=== PATIENT | female | born 1960 | race Caucasian/White ===

== ENCOUNTER 2019-08-17 13:47 | Outpatient (CLI) | payer MEDICARE, OTHER, SELFPAY ==
--- NOTE | ~2019-08-17 | MM_ITS ---
EXAMINATION: MM screening [facility] BI w chang HISTORY: Screening mammogram TECHNIQUE: Craniocaudal and mediolateral oblique 3-D tomosynthesis images were obtained and synthetic 2-D images were generated. CAD analysis was submitted and interpreted. COMPARISON: 06/27/2015, 06/20/2014, 06/06/2013 BREAST PARENCHYMAL COMPOSITION: There are scattered areas of fibroglandular density. FINDINGS: There has been interval insertion of a cardiac loop recorder is of the left breast. There i s no evidence of suspicious mass, calcification, or architectural distortion to suggest malignancy in either breast. There has been no suspicious interval change. IMPRESSION: 1. No mammographic evidence of malignancy. 2. Recommend routine screening mammography in one year. BI-RADS Category 1: Negative Reviewed, dictated and finalized at location A. ET DEVELOPER
--- NOTE | ~2019-08-17 | DEXA_ITS ---
Bone Density Report Name: Aleta Augustin Age: 58 Sex: Female Ethnicity: White Date of : 1960 Indication: postmenopausal; height loss; prior fracture; hysterectomy; rheumatoid arthritis; Referring Provider: VALENTIN SAMSON Study: Bone densitometry was performed. Exam Date: August 17, 2019 Accession number: [id number] Bone Density: Region BMD T-score Z-score Classification AP Spine (L1, L2) 1.094 1.0 2.4 Normal Femoral Neck (Left) 0.862 0.1 1.4 Normal Total Hip (Left) 1.102 1.3 2.3 Normal Total Hip Bilateral Avg 1.119 1.5 2.4 Normal Femoral Neck (Right) 0.891 0.4 1.7 Normal Total Hip (Right) 1.135 1.6 2.5 Normal World Health Organization criteria for BMD impression classify patients as: Normal (T-score at or above -1.0), Osteopenia (T-score between -1.0 and -2.5), or Osteoporosis (T-score at or below -2.5). 10-year Fracture Risk: FRAX not reported because: All T-scores for Spine Total, Hip Total, Femoral Neck at or above -1.0 Previous Exams: Region Exam Age BMD T-score BMD Change BMD Change Date g/cm2 vs Baseline vs Previous AP Spine(L1, L2) 08/17/2019 58 1.094 1.0 -0.017(-1.6%)# -0.133(-10.8%) 05/02/2010 49 1.226 2.2 0.115(10.4%)* 0.115(10.4%)* 05/05/2003 42 1.111 1.2 Total Hip(Left) 08/17/2019 58 1.102 1.3 -0.070(-6.0%)# -0.096(-8.0%)# 05/02/2010 49 1.198 2.1 0.026(2.2%) 0.026(2.2%) 05/05/2003 42 1.172 1.9 Total Hip(Right) 08/17/2019 58 1.135 1.6 -0.040(-3.4%)# -0.129(-10.2%) 05/02/2010 49 1.264 2.6 0.089(7.6%)* 0.089(7.6%)* 05/05/2003 42 1.175 1.9 *Denotes significance at 95% confidence level, LSC for AP Spine = 0.022 g/cm2, LSC for Total Hip = 0.027 g/cm2 Clinical Information Provided by Patient: Has had a low trauma fracture Has rheumatoid arthritis Has used the following medications: Vitamin D, Calcium Has the following medical conditions: Hysterectomy Patient maximum height was 67.5 Drinks caffeinated beverages Onset of menses at age 15 Number of children 0 Impression: The patient has normal bone mass. The patient has risk factors, including: previous fracture. No significant bone loss was observed. Discussion: BONE DENSITY IS ABOVE THE MINIMUM DESIRABLE LEVEL AT ALL SKELETAL SITES TESTED. This patient?s bone mineral density is above the minimum desirable level (T-score -1.0 or better) at all sites measured. The patient should follow a healthful lifestyl
== END 2019-08-17 13:48 | disposition home or self-care (01) ==
LOC: ANHIMG 13:56
PROVIDERS: PCP Family Medicine; Visit Provider Family Medicine
DX: Z12.31 Encounter for screening mammogram for malignant neoplasm of breast (principal); Z78.0 Asymptomatic menopausal state
CPT/HCPCS: 77063; 77067; 77080

== ENCOUNTER → 2020-01-18 08:52 | Outpatient (CLI) | payer MEDICARE, OTHER, SELFPAY ==
--- NOTE | ~2020-01-18 | MR_ITS ---
EXAMINATION: MR lumbar spine wo [facility] EXAM DATE: 01/18/2020 09:46 INDICATION: Low back pain, bilateral leg pain. Previous low back surgery 15 years ago. TECHNIQUE: Multi-sequential, multiplanar MR images of the lumbar spine were obtained without contrast . Sagittal T1, T2, T2 fat saturation images. Axial T2 weighted images. Comparison is made to prior examination from 12/13/2009. FINDINGS: There is posterior and interbody fusion L4-S1. There is moderate disc disease from T10 thro ugh L3, moderate to severe at L3-4. L4 and L5 laminectomies. There is 5 mm retrolisthesis L1 on L2 an d L2 on L3. The conus medullaris terminates at the L1/2 level and has normal signal intensity and mor phology. There is mild to moderate lumbar levoscoliosis. Paraspinal soft tissue is unremarkable. Lef t renal lesion, imaged portion consistent with cyst measuring 2 cm. Level by level evaluation: T12-L1: There is a mild diffuse disc bulge. Facet arthropathy: Mild to moderate left, mild right. Neural foraminal stenosis: Mild to moderate bilateral. Central canal stenosis: Mild. L1-L2: There is a mild to moderate diffuse disc bulge. Facet arthropathy: Moderate. Neural foraminal stenosis: Mild to moderate bilateral, right greater than left. Central canal stenosis: Mild. L2-L3: There is a moderate diffuse disc bulge. Facet arthropathy: Moderate to severe right, moderate left macro flavum. Neural foraminal stenosis: Moderate right, mild to moderate left. Central canal stenosis: Mild to moderate. L3-L4: There is a moderate diffuse disc bulge. Facet arthropathy: Probably moderate to severe . Ligamentum flavum enlargement. Neural foraminal stenosis: Moderate to severe right, moderate left. Central canal stenosis: Mild to moderate. L4-L5: This level is fused. Facet arthropathy: Fused. Neural foraminal stenosis: No stenosis. Central canal stenosis: No stenosis. L5-S1: This level is fused. Facet arthropathy: Probably moderate left and mild to moderate right. Neural foraminal stenosis: Mild to moderate bilateral. Central canal stenosis: No stenosis. Compared to previous 2009 examination, the fusion, laminectomies are new. There has been development of the subluxations at L1-2 and L2-3 and significant interval progression in thoracolumbar disc disea se. IMPRESSION: 1. L4-S1 fusion, laminectomies. 2. Overall moderate lumbar spondylosis with progression compared to 2009. Reviewed, dictated and finalized at location G.
== END ==
PROVIDERS: PCP Family Medicine
DX: M54.42 Lumbago with sciatica, left side (principal); M54.41 Lumbago with sciatica, right side; G89.29 Other chronic pain; Z98.1 Arthrodesis status; M47.816 Spondylosis without myelopathy or radiculopathy, lumbar region
CPT/HCPCS: 72148

== ENCOUNTER 2020-12-09 08:50 | Outpatient (CLI) | payer MEDICARE, OTHER, SELFPAY ==
--- NOTE | ~2020-12-09 | MM_ITS ---
EXAMINATION: MM screening [facility] BI w chang HISTORY: Screening mammogram TECHNIQUE: Craniocaudal and mediolateral oblique 3-D tomosynthesis images were obtained and synthetic 2-D images were generated. CAD analysis was submitted and interpreted. COMPARISON: 08/17/2019, 06/27/2015 bilateral digital screening mammogram examinations BREAST PARENCHYMAL COMPOSITION: There are scattered areas of fibroglandular density. FINDINGS: A monitor device is noted in the posterior aspect of the lower inner left breast. There is no evidence of suspicious mass, calcification, or architectural distortion to suggest malignancy in e ither breast. There has been no suspicious interval change. IMPRESSION: 1. No mammographic evidence of malignancy. 2. Recommend routine screening mammography in one year. BI-RADS Category 1: Negative Reviewed, dictated and finalized at location A.
== END 2020-12-09 08:51 | disposition home or self-care (01) ==
LOC: ANHIMG 08:52
PROVIDERS: PCP Family Medicine; Visit Provider Family Medicine
DX: Z12.31 Encounter for screening mammogram for malignant neoplasm of breast (principal)
CPT/HCPCS: 77063; 77067

== ENCOUNTER → 2020-12-20 02:48 | Outpatient (CLI) | payer MEDICARE, OTHER, SELFPAY ==
[2020-12-20 18:15] LABS: SARS-CoV-2 RNA PCR Negative
== END ==
PROVIDERS: PCP Family Medicine; Visit Provider Internal Medicine Gastroenterology
DX: Z01.812 Encounter for preprocedural laboratory examination (principal); Z20.822 Contact with and (suspected) exposure to COVID-19
CPT/HCPCS: C9803; U0003; U0005

== ENCOUNTER 2020-12-23 01:43 | Day surgery (SDC) | payer MEDICARE, OTHER, SELFPAY ==
[2020-12-10 14:03] VITALS: BMI 30.7
--- NOTE | 2020-12-23 10:35 | WPDGICN ---
Assessment and Plan Assessment and plan (1) Encounter for screening colonoscopy: Code(s): Z12.11 - Encounter for screening for malignant neoplasm of colon Status: Acute Assessment and Plan: Patient presents for screening colonoscopy. She reports bowel habits have improved with 2 Koul X daily. No bleeding is encountered. She appears to be at average risk for colon polyps. Screening colonoscopy will be performed further recommendations may be given subsequently. (2) Systemic lupus erythematosus, unspecified: Code(s): M32.9 - Systemic lupus erythematosus, unspecified Status: Acute (3) Rheumatoid arthritis involving multiple sites: Code(s): M06.9 - Rheumatoid arthritis, unspecified Status: Acute GI Consult Note Consult date/time: 12/23/20 10:35 HPI: Aleta Augustin is a 60 year old female Presents for screening colonoscopy. Patient reports that her current weight appetite bowel movements are normal. She states that she is laxative dependent. She reports that she takes Dulcolax daily to correct her bowel movements. She denies any pain or bleeding. Without stool softeners she reports bowel movements every 7-10 days. Patient denies any bleeding or weight loss. Family history is noncontributory per past medical history is significant for Ehrlos-Danlos syndrome. She has been treated for rheumatoid arthritis and SLE. Review of Systems Review of Systems: All systems reviewed & are unremarkable except as noted in HPI and below PMFSH Past Medical History Medical History Chronic right hip pain Aldo-Danlos syndrome Essential (primary) hypertension Hypothyroid Low back pain Mixed hyperlipidemia Nonrheumatic mitral (valve) prolapse Obesity (BMI 30.0-34.9) Osteoporosis, unspecified Rheumatoid arthritis involving multiple sites Systemic lupus erythematosus, unspecified Social History Social History Smoking status: Never smoker Alcohol intake: current Alcohol use details: rarely Substance use: never Substance use type: does not use Living arrangements: alone Spiritual care concerns: No Meds Home Medications and Allergies Home Medications Medication Instructions Recorded Confirmed Type cyclosporine 0.05 % eye drops in a 1 drop EACH EYE Q12H 07/24/19 12/23/20 History dropperette methotrexate sodium 2.5 mg tablet See Rx Instructions PO WEEKLY 07/24/19 12/23/20 History tofacitinib 11 mg tablet,extended 11 mg PO DAILY 07/24/19 12/23/20 History release 24 hr lisinopril 20 mg tablet 40 mg PO DAILY #180 tablet 02/23/20 12/23/20 Rx gwcilqslta-tpaewbd-zwckvztb 50 1 cap PO Q4H PRN #40 cap 05/01/20 12/23/20 Rx mg-325 mg-40 mg capsule ergocalciferol (vitamin D2) 1,250 See Rx Instructions .ROUTE 06/20/20 12/23/20 Rx mcg (50,000 unit) capsule .COMPLEX #3 capsule buspirone 10 mg tablet 10 mg PO TID #270 tablet 08/09/20 12/23/20 Rx cyclobenzaprine 10 mg tablet 10 mg PO TID #270 tablet 08/09/20 12/23/20 Rx gabapentin 300 mg capsule 900 mg PO TID #810 cap 08/09/20 12/23/20 Rx levothyroxine 200 mcg tablet See Rx Instructions .ROUTE 08/09/20 12/23/20 Rx .COMPLEX #135 tablet omeprazole 20 mg capsule,delayed 20 mg PO DAILY #90 cap 09/23/20 12/23/20 Rx release tramadol 50 mg tablet 100 mg PO Q8H PRN #180 tablet 10/02/20 12/23/20 Rx fluticasone propionate 50 2 spray NASAL DAILY #16 g 11/15/20 12/23/20 Rx mcg/actuation nasal spray,suspension folic acid 1 mg tablet 1 mg PO DAILY #90 tablet 12/05/20 12/23/20 Rx furosemide 20 mg tablet See Rx Instructions .ROUTE 12/05/20 12/23/20 Rx .COMPLEX #90 tablet meloxicam 15 mg tablet 15 mg PO DAILY #90 tablet 12/05/20 12/23/20 Rx spironolactone 25 mg tablet See Rx Instructions .ROUTE 12/05/20 12/23/20 Rx .COMPLEX #90 tablet peg 3350-electrolytes 227.1 240 ml PO Q10M #1 ea 12/09/20 12/23/20 Rx
--- NOTE | 2020-12-23 10:37 | WPDANESEPPF ---
Anes - Initial Pre Proc Eval Procedure: Operation Date: 12/23/20 12:00 Proposed Procedures p Screening Colonoscopy - Asif Santiago MD Date/Time: 12/23/20 10:37 Surgeon: Asif Santiago MD Pre Op Diagnosis: neoplasm screening Patient Data Age: 60 Gender: F Height: 1.63 m Weight: 81.3 kg Allergies Allergy/AdvReac Type Severity Reaction Status Date / Time diclofenac Allergy Severe HIVES AND Verified 12/23/20 10:32 SWELLING walnut Allergy Severe Anaphylactic Verified 12/23/20 10:32 Shock bacitracin Allergy Mild BLISTERS Verified 12/23/20 10:32 neomycin Allergy Mild BLISTERS Verified 12/23/20 10:32 banana Allergy Unknown RASH AND Verified 12/23/20 10:32 ITCHING chocolate flavor Allergy Unknown Rash Verified 12/23/20 10:32 collagenase Clostridium Allergy Unknown Unknown Verified 12/23/20 10:32 histolyticu gramicidin D Allergy Unknown Unknown Verified 12/23/20 10:32 hydroxychloroquine Allergy Unknown Unknown Verified 12/23/20 10:32 ibuprofen Allergy Unknown SWELLING Verified 12/23/20 10:32 peach Allergy Unknown RASH Verified 12/23/20 10:32 polymyxin B Allergy Unknown Unknown Verified 12/23/20 10:32 pregabalin Allergy Unknown UNKNOWN Verified 12/23/20 10:32 strawberry Allergy Unknown RASH Verified 12/23/20 10:32 sunflower seed Allergy Unknown Swelling Verified 12/23/20 10:32 of Lip/Tongue/Throat Home Medications Medication Instructions Recorded Confirmed Type cyclosporine 0.05 % eye drops in a 1 drop EACH EYE Q12H 07/24/19 12/05/20 History dropperette methotrexate sodium 2.5 mg tablet See Rx Instructions PO WEEKLY 07/24/19 12/10/20 History tofacitinib 11 mg tablet,extended 11 mg PO DAILY 07/24/19 12/10/20 History release 24 hr lisinopril 20 mg tablet 40 mg PO DAILY #180 tablet 02/23/20 12/10/20 Rx bwonhrbddp-wveidmp-pyrrskvs 50 1 cap PO Q4H PRN #40 cap 05/01/20 12/10/20 Rx mg-325 mg-40 mg capsule ergocalciferol (vitamin D2) 1,250 See Rx Instructions .ROUTE 06/20/20 12/05/20 Rx mcg (50,000 unit) capsule .COMPLEX #3 capsule buspirone 10 mg tablet 10 mg PO TID #270 tablet 08/09/20 12/10/20 Rx cyclobenzaprine 10 mg tablet 10 mg PO TID #270 tablet 08/09/20 12/10/20 Rx gabapentin 300 mg capsule 900 mg PO TID #810 cap 08/09/20 12/10/20 Rx levothyroxine 200 mcg tablet See Rx Instructions .ROUTE 08/09/20 12/10/20 Rx .COMPLEX #135 tablet omeprazole 20 mg capsule,delayed 20 mg PO DAILY #90 cap 09/23/20 12/10/20 Rx release tramadol 50 mg tablet 100 mg PO Q8H PRN #180 tablet 10/02/20 12/10/20 Rx fluticasone propionate 50 2 spray NASAL DAILY #16 g 11/15/20 12/10/20 Rx mcg/actuation nasal spray,suspension folic acid 1 mg tablet 1 mg PO DAILY #90 tablet 12/05/20 12/10/20 Rx furosemide 20 mg tablet See Rx Instructions .ROUTE 12/05/20 12/10/20 Rx .COMPLEX #90 tablet meloxicam 15 mg tablet 15 mg PO DAILY #90 tablet 12/05/20 12/10/20 Rx spironolactone 25 mg tablet See Rx Instructions .ROUTE 12/05/20 12/05/20 Rx .COMPLEX #90 tablet peg 3350-electrolytes 227.1 240 ml PO Q10M #1 ea 12/09/20 12/10/20 Rx gram-21.5 gram-6.36gram oral powder packet Patient hx anesthesia problems: none Family hx anesthesia problems: none PMFSH Past Medical History Medical History (Updated 12/23/20 @ 10:41 by Darryl Padilla MD) Chronic right hip pain Aldo-Danlos syndrome Essential (primary) hypertension Hypothyroid Low back pain Mixed hyperlipidemia Nonrheumatic mitral (valve) prolapse Obesity (BMI 30.0-34.9) Osteoporosis, unspecified Rheumatoid arthritis involving multiple sites Systemic lupus erythematosus, unspecified Social History Social History Smoking status: Never smoker Alcohol intake: current Alcohol use details: rarely Substance use: never Substance use type: does not use Living arrangements: alone Spiritual care concerns: No Anes - Eval Final PreProcedure Day of Procedure
[2020-12-23 10:38] VITALS: BP 145/85; PULSE 69; RESP 18; TEMP 36.4; O2SAT 94
[2020-12-23 11:33] VITALS: BP 120/70; PULSE 60; RESP 16; O2SAT 98
[2020-12-23 11:43] VITALS: BP 124/73; PULSE 58; RESP 16; O2SAT 99
[2020-12-23 11:53] VITALS: BP 142/90; PULSE 60; RESP 18; O2SAT 99
[2020-12-23] MEDS: LACTATED RINGERS 1,000 ML 150 ML IV CONT (12:03)
== END 2020-12-23 12:36 | disposition home or self-care (01) ==
PROVIDERS: PCP Family Medicine; Visit Provider Internal Medicine Gastroenterology
PROC: 0DJD8ZZ Inspection of Lower Intestinal Tract, Via Natural or Artificial Opening Endoscopic (ICD-10-PCS; CPT 45378; principal; 2020-12-23 12:00)
DX: Z12.11 Encounter for screening for malignant neoplasm of colon (principal); K64.8 Other hemorrhoids; M32.9 Systemic lupus erythematosus, unspecified; M06.9 Rheumatoid arthritis, unspecified; Q79.60 Ehlers-Danlos syndrome, unspecified; I10 Essential (primary) hypertension; E03.9 Hypothyroidism, unspecified; I34.1 Nonrheumatic mitral (valve) prolapse; M81.0 Age-related osteoporosis without current pathological fracture; E66.9 Obesity, unspecified; Z68.31 Body mass index [BMI] 31.0-31.9, adult
CPT/HCPCS: G0121; J2704; J7120

== ENCOUNTER 2021-03-17 09:56 | Observation (INO) | payer MEDICARE, OTHER, SELFPAY ==
--- NOTE | ~2021-03-17 | CT_ITS ---
EXAMINATION: CT abdomen pelvis w con EXAM DATE: 03/17/2021 11:20 INDICATION: Abdominal pain, vomiting and constipation. Back surgery 02/26. TECHNIQUE: Spiral CT of the abdomen and pelvis was performed following intravenous injection of 100 m L Omnipaque 350. Axial, coronal and sagittal images of the abdomen and pelvis were reviewed. The do se-length product (DLP) for this examination was 1102.17 mGy-cm. The exposure was tailored according to patient size (auto mA exposure control), and iterative reconstruction (ASIR) was used as addition al dose reduction technique. There is no prior study for comparison. FINDINGS: The liver, spleen, adrenal glands and pancreas are unremarkable. Gallbladder is unremarkab le. No biliary obstruction. Portal and splenic veins are patent. Kidneys enhance symmetrically. T here is no hydronephrosis. The uterus is unremarkable. The bladder is distended but otherwise unr emarkable. There is no retroperitoneal or pelvic lymphadenopathy. The appendix is not positively visualized. There is no pericecal inflammatory change to suggest appe ndicitis. The stomach and small bowel are unremarkable. Tortuosity of the colon. There is moderate to large amount of colonic stool. No free intraperitoneal gas. The heart is normal in size. Ther e are no pericardial or pleural effusions. The lung bases are unremarkable. Thoracolumbar rods. Pa raspinal region unremarkable. IMPRESSION: 1. Constipation. Reviewed, dictated and finalized at location B. IMPRESSION: 1. Constipation.
[2021-03-17 09:57] VITALS: BP 135/64; PULSE 72; RESP 16; TEMP 36.6; O2SAT 98
--- NOTE | 2021-03-17 10:51 | ED.GENADULT ---
HPI - General Adult General Chief complaint: Nausea/Vomiting/Diarrhea Stated complaint: VOMITING Time Seen by Provider: 03/17/21 10:18 Source: patient, EMS and RN notes reviewed Mode of arrival: EMS Limitations: no limitations History of Present Illness HPI narrative: Patient is 60 years old white female brought to the emergency room from [facility] because of nausea, vomiting and constipation. Patient is status post back surgery at [facility] on February 26. Discharged to [facility] 1 week ago. Had constipation 12 days ago, received a stool softener, had few little bowel movement then no bowel movement for the last 7 days. Patient on oxycodone every 4 hour after the surgery. Patient reported that she have abdominal pain if I press on it otherwise does not feel. Patient denies any fever, chills, urinary symptoms, patient been fully vaccinated for COVID-19. History of anxiety systemic lupus rheumatoid arthritis mitral valve prolapse hyperlipidemia hypertension Aldo-Danlos syndrome, chronic pain syndrome Related Data Home Medications Medication Instructions Recorded Confirmed cyclosporine 0.05 % eye drops in a 1 drop EACH EYE Q12H 07/24/19 12/23/20 dropperette methotrexate sodium 2.5 mg tablet See Rx Instructions PO WEEKLY 07/24/19 12/23/20 tofacitinib 11 mg tablet,extended 11 mg PO DAILY 07/24/19 12/23/20 release 24 hr Allergies Allergy/AdvReac Type Severity Reaction Status Date / Time diclofenac Allergy Severe HIVES AND Verified 12/23/20 10:32 SWELLING walnut Allergy Severe Anaphylactic Verified 12/23/20 10:32 Shock bacitracin Allergy Mild BLISTERS Verified 12/23/20 10:32 neomycin Allergy Mild BLISTERS Verified 12/23/20 10:32 banana Allergy Unknown RASH AND Verified 12/23/20 10:32 ITCHING chocolate flavor Allergy Unknown Rash Verified 12/23/20 10:32 collagenase Clostridium Allergy Unknown Unknown Verified 12/23/20 10:32 histolyticu gramicidin D Allergy Unknown Unknown Verified 12/23/20 10:32 hydroxychloroquine Allergy Unknown Unknown Verified 12/23/20 10:32 ibuprofen Allergy Unknown SWELLING Verified 12/23/20 10:32 peach Allergy Unknown RASH Verified 12/23/20 10:32 polymyxin B Allergy Unknown Unknown Verified 12/23/20 10:32 pregabalin Allergy Unknown UNKNOWN Verified 12/23/20 10:32 strawberry Allergy Unknown RASH Verified 12/23/20 10:32 sunflower seed Allergy Unknown Swelling Verified 12/23/20 10:32 of Lip/Tongue/Throat Review of Systems Review of Systems: CONSTITUTIONAL: Denies fever, chills, or sweats. EYES: Denies visual changes, redness, or discharge. ENT: Denies rhinorrhea, congestion, sore throat, or otalgia. CARDIOVASCULAR: Denies chest pain, palpitations, or edema. RESPIRATORY: Denies cough or dyspnea. GASTROINTESTINAL: Denies abdominal pain, nausea, vomiting, or diarrhea. GENITOURINARY: Denies dysuria or hematuria. SKIN: Denies rash or itching. MUSCULOSKELETAL: Denies back pain, joint pain, or myalgia. NEUROLOGIC: Denies headache, numbness, or weakness. PSYCHIATRIC: Denies anxiety or depression. [facility] Past Medical History Medical History Anxiety Chronic constipation Chronic right hip pain Aldo-Danlos syndrome Essential (primary) hypertension Hypothyroid Low back pain Mixed hyperlipidemia Nonrheumatic mitral (valve) prolapse Obesity (BMI 30.0-34.9) Osteoporosis, unspecified Rheumatoid arthritis involving multiple sites Spinal stenosis, lumbar region with neurogenic claudication Systemic lupus erythematosus, unspecified Family History Family History Mother Congestive heart failure Cerebrovascular accident Sibling Cervical cancer Father Congestive heart failure Social History Social History Social History: Patient lives alone in a single-story home with 2 steps to enter. Sister will stay with patie
[2021-03-17] MEDS: ONDANSETRON INJ 4 MG/2 ML VIAL 8 MG IV PUSH (11:02)
[2021-03-17] MEDS: SODIUM CHLORIDE 0.9% IV 1,000 ML 999 ML IV CONT (11:03)
[2021-03-17] MEDS: ONDANSETRON INJ 4 MG/2 ML VIAL IV PUSH ×2 (11:36→20:19)
[2021-03-17] MEDS: HYDROmorphone HCL INJ (*CRX) 1 MG/ML SYR 0.5 MG IV PUSH ×2 (11:36→18:42)
[2021-03-17 14:35] LABS: Add Urine Microscopic? YES; Appearance Urine Clear (Clear); Bilirubin Urine Negative (Negative); Blood Urine Negative (Negative); Color Urine Straw (Yellow); Glucose Urine UA Negative (Negative); Ketones Urine Negative (Negative); Leukocyte Esterase Ur 1+ LEU/UL (Negative); Nitrate Urine Negative (Negative); Protein Urine Negative (Negative); Specific Grav Ur 1.027 (1.001-1.035); Squamous Epithelial Cell Urine Rare /hpf (Few); Transitional Epi Cells Urine Rare /hpf (None Seen); Urobilinogen Urine Negative mg/dL (<2.0); WBC Urine 16-20 /hpf
[2021-03-17] MEDS: METOCLOPRAMIDE HCL INJ 10 MG/2 ML VIAL IV PUSH (14:37)
--- NOTE | 2021-03-17 16:08 | PC.NURSE ---
EDP Thee cancelled enema at this time due to pt vomiting
[2021-03-17] MEDS: METHYLNALTREXONE 12 MG/0.6 ML VIAL SUB-Q (17:20)
[2021-03-17 18:00] VITALS: BP 128/61; PULSE 76; RESP 18; O2SAT 100
[2021-03-17 18:37] VITALS: BP 140/62; PULSE 79; RESP 16; TEMP 36.2; O2SAT 97
[2021-03-17] MEDS: SODIUM CHLORIDE 0.9% IV 1,000 ML 125 ML IV CONT (18:43)
[2021-03-17 18:51] VITALS: BMI 32.5
[2021-03-17 19:49] VITALS: BP 142/75; PULSE 81; RESP 17; TEMP 36.4; O2SAT 99
[2021-03-17] MEDS: MAGNESIUM CITRATE 300 ML BTL PO (20:19)
--- NOTE | 2021-03-17 22:39 | PM.IMHP ---
H&P: HPI History of Present Illness Date/Time: 03/17/21 22:39 This is a 60-year-old female patient who was brought to the emergency room today from [facility] because of nausea vomiting constipation. The patient had a T4 through pelvis posterior spinal fusion on 02/26/2021, T4 through S1 spinal instrumentation, L3 through L5 posterior column osteotomy, L1-L2 partial laminectomy with foraminotomies, bilateral iliac instrumentation via S2 alar iliac screws, and exploration of L4-S1 spinal fusion by Dr. Sanjeev Mai at [facility]. the patient stated that she had been constipated 12 days ago at [place] and she received a stool softener, and mineral oil and had a few small bowel movements. Now she states she has not had a bowel movement in the last 7 days. The patient has been receiving oxycodone every 4 hours after surgery. Abdominal CT was just read as constipation. The patient had been given Relistor in the emergency room. GI has seen the patient and she was ordered milk a magnesia. However the patient became nauseated and had a of bile emesis. She was not able to finish the Mag citrate. She recommended mineral oil instead. The patient was given IV fluids, Dilaudid, Zofran, and Reglan in the emergency room. The patient was given Rocephin for possible UTI. Her H&H was noted to be 8.1 and 26.1. Sodium 134. The patient was admitted to observation status on 03/17/2021. Chief Complaint: constipation Review of Systems Review of Systems: All systems reviewed & are unremarkable except as noted in HPI and below Constitutional: Constitutional: Reports as per HPI and Reports no additional constitutional complaints Eyes: Eyes: Reports as per HPI and Reports no additional eye complaints ENT: Reports system reviewed and no additional complaints, except as documented and Reports Normal hearing present Cardiovascular: Cardiovascular: Reports no additional cardiovascular complaints Respiratory: Respiratory: Reports no additional respiratory complaints and Reports no additional respiratory complaints Gastrointestinal: Gastrointestinal: Reports as per HPI and Reports no additional gastrointestinal complaints Musculoskeletal: Musculoskeletal: Reports no additional musculoskeletal complaints Integumentary/Breasts: Skin/Breast: Reports system reviewed and no additional complaints, except as docu and Reports as per HPI Neurologic: Reports system reviewed and no additional complaints, except as documented, Reports as per HPI and Reports Normal hearing present Psychiatric: Psychiatric: Reports no additional psychiatric complaints and Reports as per HPI Endocrine: Endocrine: Reports no additional endocrine complaints Hematologic/Lymphatic: Hematologic/Lymphatic: Reports no additional hematologic/lymphatic complaints Allergic/Immunologic: Allergic/Immunologic: Reports no additional allergic/immunologic complaints [facility] Past Medical History Medical History (Updated 03/17/21 @ 22:58 by Ifeoma Bernard NP) Anxiety Chronic constipation Chronic right hip pain Aldo-Danlos syndrome Essential (primary) hypertension Hypothyroid Low back pain Mixed hyperlipidemia Nonrheumatic mitral (valve) prolapse Obesity (BMI 30.0-34.9) Osteoporosis, unspecified Rheumatoid arthritis involving multiple sites Spinal stenosis, lumbar region with neurogenic claudication Systemic lupus erythematosus, unspecified Surgical History Surgical History (Updated 03/17/21 @ 22:54 by Ifeoma Bernard NP) H/O knee surgery x3 H/O: hysterectomy History of back surgery 02/26/2021 at T4 through pelvis posterior spinal fusion, T4 through S1 spinal instrumentation, L3 through L4 posterior column osteotomy and transforaminal lumbar interbody fusion, L2-L3 posterior column osteotomy, L1-L2 partial laminectomy with foraminotomies, bilateral iliac instrumentation via S2 alar iliac screws, and exploration of L4-S1 spinal fusion by Dr. Sanjeev Mai at [facility]. S/P l
[2021-03-17] MEDS: MINERAL OIL 30 ML UDC PO (23:56)
[2021-03-18] MEDS: CYCLOBENZAPRINE HCL 10 MG TABLET PO ×4 (00:01→17:35)
[2021-03-18] MEDS: cycloSPORINE 0.4 ML OPHTH SOLUTION 1 DROP EACH EYE ×3 (00:01→21:16)
[2021-03-18] MEDS: HYDROmorphone HCL INJ (*CRX) 1 MG/ML SYR 0.5 MG IV PUSH ×3 (00:09→21:26)
[2021-03-18] MEDS: traMADol HCL (*CRX) 50 MG TABLET 100 MG PO (02:43)
[2021-03-18] MEDS: SODIUM CHLORIDE 0.9% IV 1,000 ML 125 ML IV CONT ×2 (02:45→11:02)
[2021-03-18 04:48] VITALS: BP 146/78; PULSE 75; RESP 18; TEMP 37; O2SAT 98
[2021-03-18] MEDS: LEVOTHYROXINE SODIUM 100 MCG TABLET 200 MCG PO (05:31)
[2021-03-18 06:25] LABS: Basophils Absolute Auto 0.1 K/mm3 (0.0-0.1); Basophils Percent Auto 1.2 % (0.2-1.2); Eosinophils Absolute Auto 0.3 K/mm3 (0-0.3); Eosinophils Percent Auto 3.5 % (0-4.4); Hematocrit 25.5 % (37.0-47.0); Hemoglobin 7.7 g/dL (12.0-15.0); Immature Granulocyte Absolute 0.05 K/mm3 (0.00-0.031); Immature Granulocyte Percent A 0.6 % (0-0.5); Lymphocytes Absolute Auto 0.79 K/mm3 (0.9-3.2); Lymphocytes Percent Auto 10.2 % (18.3-44.2); Mean Corpuscular HGB Conc 30.2 g/dl (32-36); Mean Corpuscular Hemoglobin 31.2 pg (26-34); Mean Corpuscular Volume 103.2 fl (80-100); Mean Platelet Volume 8.4 fl (7.4-10.4); Monocytes Absolute Auto 0.6 K/mm3 (0.1-0.6); Monocytes Percent Auto 7.3 % (2.6-8.5); Neutrophils Percent Auto 77.2 % (45.5-73.1); Platelet Count Result 540 k/mm3 (150-375); Red Blood Count 2.47 M/mm3 (4.2-5.4); Red Cell Distribution Width 15.2 % (11.5-14.5); White Blood Count 7.7 K/mm3 (4.5-10.0)
[2021-03-18 06:55] LABS: Alanine Aminotransferase 36 U/L (4-35); Albumin Level 2.9 g/dL (3.5-5.1); Alkaline Phosphatase 95 U/L (38-126); Anion Gap 5 mmol/L (8-16); Aspartate Amino Transferase 51 U/L (14-36); Bilirubin,Total < 0.1 mg/dL (0.2-1.3); Blood Urea Nitrogen 11 mg/dL (7-17); Calcium 8.8 mg/dL (8.4-10.2); Carbon Dioxide 24 mmol/L (22-30); Chloride 102 mmol/L (98-107); Estimated CRCL calculation 95 ml/min; Estimated Glomerular Filt Rate > 60; Glucose 107 mg/dL (65-110); Magnesium 2.2 mg/dL (1.6-2.3); Potassium 3.9 mmol/L (3.4-5.0); Sodium 131 mmol/L (137-145)
[2021-03-18 08:30] LABS: Lactate Dehydrogenase 606 U/L (313-618)
[2021-03-18] MEDS: lisinopriL 20 MG TABLET 40 MG PO (08:38)
[2021-03-18] MEDS: GABAPENTIN 300 MG CAPSULE 900 MG PO ×4 (08:38→17:34)
[2021-03-18] MEDS: FOLIC ACID 1 MG TABLET PO (08:38)
[2021-03-18] MEDS: SPIRONOLACTONE 25 MG TABLET PO (08:39)
[2021-03-18] MEDS: busPIRone HCL 10 MG TABLET PO ×4 (08:39→17:34)
[2021-03-18] MEDS: FUROSEMIDE 20 MG TABLET PO (08:39)
[2021-03-18] MEDS: PANTOPRAZOLE 40 MG TABLET PO (08:39)
[2021-03-18] MEDS: MELOXICAM 7.5 MG TABLET 15 MG PO (08:39)
[2021-03-18] MEDS: FLUTICASONE PROPIONATE 0.05% NA SPR 16 GM BTL (*BKC) 2 SPRAY NASAL (08:40)
[2021-03-18] MEDS: MINERAL OIL 30 ML UDC PO (08:41)
[2021-03-18] MEDS: ONDANSETRON INJ 4 MG/2 ML VIAL IV PUSH (08:42)
[2021-03-18] MEDS: polyethylene glycoL 3350 17 GM POWD.PACK PO (08:42)
--- NOTE | 2021-03-18 11:33 | PM.IMPN ---
Progress Note: A&P Assessment and Plan (1) Constipation: Qualifiers: Constipation type: drug induced constipation Qualified Code(s): K59.03 - Drug induced constipation Code(s): K59.00 - Constipation, unspecified Status: Acute Assessment and Plan: With associated N/V. CT a/p showed moderate to large amount of colonic stool. She is postop spinal fusion on 02/26/21 and had been taking narcotic pain medication due to this; likely etiology of constipation. Limit narcotics. Received Relistor on admission. Conitnue with miralax and mineral oil. Soap suds enema prn Clear liquid diet. Advance as tolerated per GI recommendations. Will discontinue IV fluids as she is no longer vomiting and tolerating PO intake Appreciate gastroenterology consultation (2) Abnormal urinalysis: Code(s): R82.90 - Unspecified abnormal findings in urine Status: Acute Assessment and Plan: UA with 1+ leuk esterase. She denies urinary symptoms. No fever, leukocytosis, other signs/symptoms to suggest infection Received 1 dose IV Rocephin in ED. not continued given lack of symptoms. Will await results of urine culture tailor antibiotics accordingly (3) Anemia: Qualifiers: Anemia type: unspecified type Qualified Code(s): D64.9 - Anemia, unspecified Code(s): D64.9 - Anemia, unspecified Status: Acute Assessment and Plan: Baseline around 11. Hemoglobin is lower, down to 7.7 today. Vital signs are stable and there is no signs of active bleeding. Monitor H&H closely Check iron panel, B12, and folate (4) S/P lumbar fusion: Code(s): Z98.1 - Arthrodesis status Status: Acute Assessment and Plan: She is s/p lumbar fusion on 02/26/2021. Continue cyclobenzaprine and gabapentin Analgesics available as needed for pain. Limit narcotics. Continue with PT/OT during inpatient hospital stay Plan for discharge back to acute rehab once constipation has improved (5) Hypothyroid: Code(s): E03.9 - Hypothyroidism, unspecified Status: Acute Assessment and Plan: TSH is within normal limits Continue levothyroxine (6) Essential (primary) hypertension: Code(s): I10 - Essential (primary) hypertension Status: Chronic Assessment and Plan: Blood pressure reviewed and has been generally well controlled. Last BP 146/78 Continue lisinopril, furosemide, and spironolactone Monitor BP trends Subjective Date/time seen: 03/18/21 11:33 Interval history: Date of service: 03/18/21 Aleta Augustin is a 60-year-old female with a history Aldo-Danlos syndrome, rheumatoid arthritis, SLE, hypertension, constipation, hypothyroidism, and spinal stenosis. She is now s/p lumbar fusion procedure and is undergoing rehab at the [facility] rehab center. She is seen in follow-up for constipation. She is feeling better at this time. No further nausea or vomiting. She is tolerating clear liquids for the most part. She was able to eat about half of her tray. She stated that she could not tolerate the smell of some of the foods. She denies abdominal pain, bloating, or cramping. She reports 6/10 back pain that travels down the length of her back and radiates to the bilateral hips. She is doing well with therapy. She is more comfortable if she is sitting up. She denies shortness of breath, cough, or chest pain. Denies palpitations, dizziness, or lightheadedness. She informs me that she has a loop recorder as established with sports marketer Dr. Okeefe. She denies urinary symptoms. She reports swelling in her upper and lower extremities. Review of Systems Review of Systems: All systems reviewed & are unremarkable except as noted in HPI and below Exam Narrative: Ms. Augustin is a well-nourished, well-appearing 60-year-old female who is sitting up at the bedside. She appears comfortable and is in N
--- NOTE | 2021-03-18 14:24 | WPDGIPROGNO ---
Progress Note: A&P Assessment and Plan (1) Constipation: Qualifiers: Constipation type: drug induced constipation Qualified Code(s): K59.03 - Drug induced constipation Code(s): K59.00 - Constipation, unspecified Status: Acute Assessment and Plan: Patient's symptoms have improved. No longer vomiting. Tolerating diet. Plan to advance diet as tolerated. Oral laxatives to continue. She may benefit from additional enemas if bowel movements do not resume to normal. Hopefully we can limit her narcotics as this undoubtedly contributed to her constipation. (2) S/P lumbar fusion: Code(s): Z98.1 - Arthrodesis status Status: Acute Subjective Date/time seen: 03/18/21 14:24 Patient no longer vomiting. Reports she has had some small amount of stool with treatment today. Review of Systems Review of Systems: All systems reviewed & are unremarkable except as noted in HPI and below Exam Narrative: Physical exam reveals patient to be alert comfortable at rest. HEENT exam anicteric. Lungs clear. Heart without murmur. Abdomen soft with no localized tenderness at present. Objective Data Vital Signs Vital Signs: Vital Signs - 24 hr 03/17/21 18:00 03/17/21 18:37 03/17/21 19:49 Temperature 97.2 F L 97.6 F Pulse Rate 76 79 81 Respiratory Rate 18 16 17 Blood Pressure 128/61 140/62 142/75 H Pulse Oximetry 100 97 99 03/18/21 04:48 Temperature 98.6 F Pulse Rate 75 Respiratory Rate 18 Blood Pressure 146/78 H Pulse Oximetry 98 Intake/Output Intake/Output: Intake & Output 03/15/21 03/16/21 03/17/21 03/18/21 23:59 23:59 23:59 23:59 Intake Total 1050 2120 Output Total 500 Balance 1050 1620 Meds/Results Medications: Active Medications Generic Name Dose Route Start Last Admin Trade Name Freq PRN Reason Stop Dose Admin Buspirone HCl 10 mg 03/17/21 23:35 03/18/21 13:46 Buspirone Hcl 10 Mg Tablet PO 10 mg TID JOSE Administration Cyclobenzaprine HCl 10 mg 03/17/21 23:35 03/18/21 13:45 Cyclobenzaprine Hcl 10 Mg Tablet PO 10 mg TID JOSE Administration Cyclosporine 1 drop 03/17/21 23:35 03/18/21 08:40 Cyclosporine 0.4 Ml Ophth Solution EACH EYE 1 drop Q12HR JOSE Administration Ergocalciferol 50,000 unit 03/19/21 09:00 Ergocalciferol 50,000 Unit Capsule BY MOUTH MONTHLY JOSE Fluticasone Propionate 2 spray 03/18/21 09:00 03/18/21 08:40 Fluticasone Propionate 0.05% Na Spr 16 Gm Btl (*Bkc) NASAL 2 spray DAILY JOSE Administration Folic Acid 1 mg 03/18/21 09:00 03/18/21 08:38 Folic Acid 1 Mg Tablet PO 1 mg DAILY JOSE Administration Furosemide 20 mg 03/18/21 09:00 03/18/21 08:39 Furosemide 20 Mg Tablet PO 20 mg DAILY JOSE Administration Gabapentin 900 mg 03/17/21 23:35 03/18/21 13:45 Gabapentin 300 Mg Capsule PO 900 mg TID JOSE Administration Hydromorphone HCl 0.5 mg 03/17/21 14:48 03/18/21 05:35 Hydromorphone Hcl Inj (*Crx) 1 Mg/Ml Syr IV PUSH 0.5 mg Q4H PRN Administration Pain Rated 7-10 Acetaminophen 1,000 mg in 100 mls @ 400 mls/hr 03/17/21 20:20 Ofirmev 1,000 Mg Ivpb IVPB 03/18/21 20:21 Q6H PRN Mild Pain (1-3) or Fever Levothyroxine Sodium 200 mcg 03/18/21 06:30 03/18/21 05:31 Levothyroxine Sodium 100 Mcg Tablet PO 200 mcg DAILY@0630 JOSE Administration Lisinopril 40 mg 03/18/21 09:00 03/18/21 08:38 Lisinopril 20 Mg Tablet PO 40 mg DAILY JOSE Administration Meloxicam 15 mg 03/18/21 08:00 03/18/21 08:39 Meloxicam 7.5 Mg Tablet PO 15 mg DAILY@0800 JOSE Administration Methotrexate 25 mg 03/30/21 09:00 Methotrexate 2.5 Mg Tab (*Chemo) PO Pascual@0900 JOSE Mineral Oil 30 ml 03/17/21 22:40 03/18/21 08:41 Mineral Oil 30 Ml Udc PO 30 ml DAILY JOSE Administration Ondansetron HCl 4 mg 03/17/21 14:48 03/18/21 08:42 Ondansetron Inj 4 Mg/2 Ml Vial IV PUSH 4 mg Q4H PRN Administration Nausea Pantop
[2021-03-18 14:59] VITALS: BP 140/82; PULSE 74; RESP 18; TEMP 35.9; O2SAT 98
--- NOTE | 2021-03-18 16:10 | CONS_ITS ---
This report was moved to the correct visit, [id number] on 03/26/21. Original report was signed by Asif Santiago MD 03/17/21 3060. Assessment and Plan Assessment and plan (1) Constipation: Qualifiers: Constipation type: drug induced constipation Qualified Code(s): K59.03 - Drug induced constipation Code(s): K59.00 - Constipation, unspecified Status: Acute Assessment and Plan: Patient's current symptom complex including vomiting appears be related to constipation. Constipation most likely on the basis of narcotic pain medications. A colonoscopy performed 2 months ago revealed no obstruction was essentially unremarkable. Patient states she has chronic constipation but has only been on Colace during her postoperative period and has taken oxycodone every 4 hours. At the present time would recommend intermittent laxatives and perhaps cleansing enemas. Likely it will take several days to get her cleaned out. Hopefully narcotics can be minimized. If laxatives and enemas fail to work, them we may try Movantik. (2) S/P lumbar fusion: Code(s): Z98.1 - Arthrodesis status Status: Acute (3) Anxiety: Code(s): F41.9 - Anxiety disorder, unspecified Status: Acute (4) Systemic lupus erythematosus, unspecified: Code(s): M32.9 - Systemic lupus erythematosus, unspecified Status: Acute (5) Rheumatoid arthritis involving multiple sites: Code(s): M06.9 - Rheumatoid arthritis, unspecified Status: Acute GI Consult Note Consult date/time: 03/17/21 16:10 HPI: Aleta Augustin is a 60 year old female I am asked to see because of constipation and vomiting. Patient has a long history of SLE, rheumatoid arthritis, anxiety, Ehrlos-Danlos syndrome. She was seen by my service and underwent screening colonoscopy that was unremarkable on 12/23/2020. Since that time underwent a spinal fusion on 02/26/2021. Subsequently she has been in rehab service. She has taken oxycodone every 4 hours for pain control. Apparently she has a history of chronic constipation. She has been given Colace and perhaps alexander Colace at the rehab service. Patient recently began to have vomiting. CT scan was performed in the ER which revealed excess stool Consistent with constipation. Review of Systems Review of Systems: All systems reviewed & are unremarkable except as noted in HPI and below PMFSH Past Medical History Medical History Anxiety Chronic constipation Chronic right hip pain Aldo-Danlos syndrome Essential (primary) hypertension Hypothyroid Low back pain Mixed hyperlipidemia Nonrheumatic mitral (valve) prolapse Obesity (BMI 30.0-34.9) Osteoporosis, unspecified Rheumatoid arthritis involving multiple sites Spinal stenosis, lumbar region with neurogenic claudication Systemic lupus erythematosus, unspecified Family History Family History Mother Congestive heart failure Cerebrovascular accident Sibling Cervical cancer Father Congestive heart failure Social History Social History Social History: Patient lives alone in a single-story home with 2 steps to enter. Sister will stay with patient for 2-6 weeks at time of discharge. Smoking status: Never smoker Second hand tobacco smoke exposure: No Alcohol intake: current Alcohol use details: rarely Substance use: never Substance use type: does not use Spiritual care concerns: No Meds Home Medications and Allergies Home Medications Medication Instructions Recorded Confir
--- NOTE | 2021-03-18 18:28 | WPDREHPN ---
Subjective Date/time seen: 03/18/21 18:28 Interval history: 60-year-old female with past medical history of a chronic pain disorder, chronic constipation, cluster headaches, hypothyroidism, hypertension, GERD, lupus, rheumatoid arthritis, chronic low back pain, mitral valve prolapse, osteoporosis and lumbar stenosis with neurogenic claudication who was transferred from [facility] to [facility] due to constipation and emesis. On 02/26/2021 patient underwent a T4 through pelvis posterior spinal fusion. Postoperatively at [place] patient also had postop constipation with ileus. Patient was given mineral oil 3 times a day. Patient's normal bowel program at home consist of 3 Colace tablets and 3 Khadra Colace tablets 3 times a day with p.r.n. mineral oil. Patient has a very longstanding issue with constipation. Patient had been doing well at acute rehab. Patient was on oxycodone 5 mg twice a day. Patient has scheduled Tylenol 4 times a day. She began having issues with abdominal pain, constipation. An IV was placed at [facility] and aggressive bowel program was established. Unfortunately patient began having emesis and was unable to keep anything down. Patient was then transferred to the ED department for CT of the abdomen revealed no obstruction. GI was consulted and patient has been placed on aggressive bowel program here at [facility]. Patient has had 1 small bowel movement and 1 large bowel movement today. Patient currently is on a clear liquid diet. Patient has the sensation that she needs to have another bowel movement. Patient looks better than when the examiner saw her last. Exam Narrative: Head is normocephalic. Patient recognizes me. Heart rate and rhythm is regular. Lungs are clear to auscultation. Abdomen is soft possibly mild distention noted. Bowel sounds are present in all 4 hunt. Bilateral upper and extremity strength are 4/5 bilateral lower extremity strength are 4/5 Objective Data Vital Signs Vital Signs: Vital Signs - 24 hr 03/17/21 18:37 03/17/21 19:49 03/18/21 04:48 Temperature 36.2 C L 36.4 C 37.0 C Pulse Rate 79 81 75 Respiratory Rate 16 17 18 Blood Pressure 140/62 142/75 H 146/78 H Pulse Oximetry 97 99 98 03/18/21 14:59 Temperature 35.9 C L Pulse Rate 74 Respiratory Rate 18 Blood Pressure 140/82 Pulse Oximetry 98 Intake/Output Intake/Output: Intake & Output 03/15/21 03/16/21 03/17/21 03/18/21 23:59 23:59 23:59 23:59 Intake Total 1050 3090 Output Total 1000 Balance 1050 2090 Meds/Results Medications: Active Medications Generic Name Dose Route Start Last Admin Trade Name Freq PRN Reason Stop Dose Admin Buspirone HCl 10 mg 03/17/21 23:35 03/18/21 17:34 Buspirone Hcl 10 Mg Tablet PO 10 mg TID JOSE Administration Cyclobenzaprine HCl 10 mg 03/17/21 23:35 03/18/21 17:35 Cyclobenzaprine Hcl 10 Mg Tablet PO 10 mg TID JOSE Administration Cyclosporine 1 drop 03/17/21 23:35 03/18/21 08:40 Cyclosporine 0.4 Ml Ophth Solution EACH EYE 1 drop Q12HR JOSE Administration Ergocalciferol 50,000 unit 03/19/21 09:00 Ergocalciferol 50,000 Unit Capsule BY MOUTH MONTHLY [facility] Fluticasone Propionate 2 spray 03/18/21 09:00 03/18/21 08:40 Fluticasone Propionate 0.05% Na Spr 16 Gm Btl (*Bkc) NASAL 2 spray DAILY JOSE Administration Folic Acid 1 mg 03/18/21 09:00 03/18/21 08:38 Folic Acid 1 Mg Tablet PO 1 mg DAILY JOSE Administration Furosemide 20 mg 03/18/21 09:00 03/18/21 08:39 Furosemide 20 Mg Tablet PO 20 mg DAILY JOSE Administration Gabapentin 900 mg 03/17/21 23:35 03/18/21 17:34 Gabapentin 300 Mg Capsule PO 900 mg TID JOSE Administration Hydromorphone HCl 0.5 mg 03/17/21 14:48 03/18/21 05:35 Hydromorphone Hcl Inj (*Crx) 1 Mg/Ml Syr IV PUSH 0.5 mg Q4H PRN Administration Pain Rated 7-10 Acetaminophen 1,000 mg in 100 mls @ 400 mls/hr 03/17/21 20:20
[2021-03-18 21:20] VITALS: BP 140/85; PULSE 71; RESP 20; TEMP 36.7; O2SAT 97
[2021-03-19] MEDS: traMADol HCL (*CRX) 50 MG TABLET 100 MG PO (04:05)
[2021-03-19] MEDS: LEVOTHYROXINE SODIUM 100 MCG TABLET 200 MCG PO (05:33)
[2021-03-19 05:37] VITALS: BP 120/50; PULSE 71; RESP 16; TEMP 36.7; O2SAT 95
[2021-03-19 06:29] LABS: Hematocrit 24.3 % (37.0-47.0); Hemoglobin 7.5 g/dL (12.0-15.0); Mean Corpuscular HGB Conc 30.9 g/dl (32-36); Mean Corpuscular Hemoglobin 31.1 pg (26-34); Mean Corpuscular Volume 100.8 fl (80-100); Mean Platelet Volume 8.6 fl (7.4-10.4); Platelet Count Result 544 k/mm3 (150-375); Red Blood Count 2.41 M/mm3 (4.2-5.4); Red Cell Distribution Width 15.1 % (11.5-14.5); White Blood Count 7.4 K/mm3 (4.5-10.0)
[2021-03-19 06:56] LABS: Anion Gap 4 mmol/L (8-16); Blood Urea Nitrogen 10 mg/dL (7-17); Calcium 8.8 mg/dL (8.4-10.2); Carbon Dioxide 25 mmol/L (22-30); Chloride 106 mmol/L (98-107); Estimated CRCL calculation 95 ml/min; Estimated Glomerular Filt Rate > 60; Glucose 89 mg/dL (65-110); Potassium 3.6 mmol/L (3.4-5.0); Sodium 135 mmol/L (137-145)
[2021-03-19 08:00] VITALS: BP 128/66; PULSE 74; RESP 18; TEMP 35.6; O2SAT 100
[2021-03-19] MEDS: FOLIC ACID 1 MG TABLET PO (09:13)
[2021-03-19] MEDS: FLUTICASONE PROPIONATE 0.05% NA SPR 16 GM BTL (*BKC) 2 SPRAY NASAL (09:13)
[2021-03-19] MEDS: MINERAL OIL 30 ML UDC PO (09:13)
[2021-03-19] MEDS: GABAPENTIN 300 MG CAPSULE 900 MG PO ×2 (09:14→13:27)
[2021-03-19] MEDS: MELOXICAM 7.5 MG TABLET 15 MG PO (09:14)
[2021-03-19] MEDS: busPIRone HCL 10 MG TABLET PO ×2 (09:15→13:25)
[2021-03-19] MEDS: lisinopriL 20 MG TABLET 40 MG PO (09:15)
[2021-03-19] MEDS: FUROSEMIDE 20 MG TABLET PO (09:16)
[2021-03-19] MEDS: PANTOPRAZOLE 40 MG TABLET PO (09:16)
[2021-03-19] MEDS: CYCLOBENZAPRINE HCL 10 MG TABLET PO ×2 (09:16→13:26)
[2021-03-19] MEDS: ERGOCALCIFEROL 50,000 UNIT CAPSULE 50000 UNITS BY MOUTH (09:16)
[2021-03-19] MEDS: SPIRONOLACTONE 25 MG TABLET PO (09:16)
[2021-03-19] MEDS: cycloSPORINE 0.4 ML OPHTH SOLUTION 1 DROP EACH EYE (09:17)
[2021-03-19] MEDS: polyethylene glycoL 3350 17 GM POWD.PACK PO (09:18)
--- NOTE | 2021-03-19 09:50 | WPDGIPROGNO ---
Progress Note: A&P Assessment and Plan (1) Constipation: Qualifiers: Constipation type: drug induced constipation Qualified Code(s): K59.03 - Drug induced constipation Code(s): K59.00 - Constipation, unspecified Status: Acute Assessment and Plan: Constipation improving. Plan to continue laxative such as MiraLax on a daily basis if needed. Try to minimize her narcotic pain medications as much as necessary. Okay to start rehab if possible hopefully discharge today. (2) S/P lumbar fusion: Code(s): Z98.1 - Arthrodesis status Status: Acute Subjective Date/time seen: 03/19/21 09:50 Patient feeling much better today. Has had some bowel movements with laxatives. Denies any abdominal pain. Review of Systems Review of Systems: All systems reviewed & are unremarkable except as noted in HPI and below Exam Narrative: Physical exam reveals patient to be alert comfortable at rest. HEENT exam unremarkable. Lungs are clear to auscultation and percussion. Heart is without murmur. Abdomen is soft nonte Objective Data Vital Signs Vital Signs: Vital Signs - 24 hr 03/18/21 14:59 03/18/21 21:20 03/19/21 05:37 Temperature 96.7 F L 98.1 F 98.0 F Pulse Rate 74 71 71 Respiratory Rate 18 20 16 Blood Pressure 140/82 140/85 120/50 L Pulse Oximetry 98 97 95 Intake/Output Intake/Output: Intake & Output 03/16/21 03/17/21 03/18/21 03/19/21 23:59 23:59 23:59 23:59 Intake Total 1050 3570 940 Output Total 1000 500 Balance 1050 2570 440 Meds/Results Medications: Active Medications Generic Name Dose Route Start Last Admin Trade Name Freq PRN Reason Stop Dose Admin Buspirone HCl 10 mg 03/17/21 23:35 03/19/21 09:15 Buspirone Hcl 10 Mg Tablet PO 10 mg TID JOSE Administration Cyclobenzaprine HCl 10 mg 03/17/21 23:35 03/19/21 09:16 Cyclobenzaprine Hcl 10 Mg Tablet PO 10 mg TID JOSE Administration Cyclosporine 1 drop 03/17/21 23:35 03/19/21 09:17 Cyclosporine 0.4 Ml Ophth Solution EACH EYE 1 drop Q12HR JOSE Administration Ergocalciferol 50,000 unit 03/19/21 09:00 03/19/21 09:16 Ergocalciferol 50,000 Unit Capsule BY MOUTH 50,000 unit MONTHLY JOSE Administration Fluticasone Propionate 2 spray 03/18/21 09:00 03/19/21 09:13 Fluticasone Propionate 0.05% Na Spr 16 Gm Btl (*Bkc) NASAL 2 spray DAILY JOSE Administration Folic Acid 1 mg 03/18/21 09:00 03/19/21 09:13 Folic Acid 1 Mg Tablet PO 1 mg DAILY JOSE Administration Furosemide 20 mg 03/18/21 09:00 03/19/21 09:16 Furosemide 20 Mg Tablet PO 20 mg DAILY JOSE Administration Gabapentin 900 mg 03/17/21 23:35 03/19/21 09:14 Gabapentin 300 Mg Capsule PO 900 mg TID JOSE Administration Hydromorphone HCl 0.5 mg 03/17/21 14:48 03/18/21 21:26 Hydromorphone Hcl Inj (*Crx) 1 Mg/Ml Syr IV PUSH 0.5 mg Q4H PRN Administration Pain Rated 7-10 Levothyroxine Sodium 200 mcg 03/18/21 06:30 03/19/21 05:33 Levothyroxine Sodium 100 Mcg Tablet PO 200 mcg DAILY@0630 [facility] Administration Lisinopril 40 mg 03/18/21 09:00 03/19/21 09:15 Lisinopril 20 Mg Tablet PO 40 mg DAILY JOSE Administration Meloxicam 15 mg 03/18/21 08:00 03/19/21 09:14 Meloxicam 7.5 Mg Tablet PO 15 mg DAILY@0800 [facility] Administration Methotrexate 25 mg 03/30/21 09:00 Methotrexate 2.5 Mg Tab (*Chemo) PO Pascual@0900 [facility] Mineral Oil 30 ml 03/17/21 22:40 03/19/21 09:13 Mineral Oil 30 Ml Udc PO 30 ml DAILY JOSE Administration Ondansetron HCl 4 mg 03/17/21 14:48 03/18/21 08:42 Ondansetron Inj 4 Mg/2 Ml Vial IV PUSH 4 mg Q4H PRN Administration Nausea Pantoprazole Sodium 40 mg 03/18/21 09:00 03/19/21 09:16 Pantoprazole 40 Mg Tablet PO 40 mg QAM JOSE Administration Polyethylene Glycol 17 gm 03/18/21 09:00 03/19/21 09:18 Polyethylene Glycol 3350 17 Gm Powd.Pack PO 17 gm QAM JOSE Administration Spironolactone 25
--- NOTE | 2021-03-19 13:58 | PM.DS ---
DS: Admitting Diagnosis Admitting Diagnosis Constipation DS: Discharge Diagnosis Discharge Diagnosis (1) Constipation: Qualifiers: Constipation type: drug induced constipation Qualified Code(s): K59.03 - Drug induced constipation Code(s): K59.00 - Constipation, unspecified Status: Acute Assessment and Plan: With associated N/V. CT a/p showed moderate to large amount of colonic stool. She is postop spinal fusion on 02/26/21 and had been taking narcotic pain medication due to this; likely etiology of constipation. She was seen in consultation by Gastroenterology. Received Relistor on admission. She received IV fluids. She also had soapsuds enema, MiraLax, and mineral oil. She had several bowel movements following these therapies. Started on clear liquids and diet was advanced to regular diet with no issues. Narcotic should be limited, this was discussed with the patient. Continue with daily MiraLax and Dulcolax suppository as needed (2) Abnormal urinalysis: Code(s): R82.90 - Unspecified abnormal findings in urine Status: Acute Assessment and Plan: UA with 1+ leuk esterase. She denied urinary symptoms. No fever, leukocytosis, other signs/symptoms to suggest infection. She received 1 dose of IV Rocephin in the ED, this was not continued given her lack of symptoms. Final urine culture suggested contamination. (3) Anemia: Qualifiers: Anemia type: unspecified type Qualified Code(s): D64.9 - Anemia, unspecified Code(s): D64.9 - Anemia, unspecified Status: Acute Assessment and Plan: Baseline around 11. Hemoglobin has been lower are around 7-8. Iron panel evaluated and appears to be consistent with development of anemia of chronic disease. Iron stores are very low, therefore will initiate daily oral iron supplementation. Vital signs remained stable and there was no signs of active bleeding. Repeat CBC in 1 week (4) S/P lumbar fusion: Code(s): Z98.1 - Arthrodesis status Status: Acute Assessment and Plan: She is s/p lumbar fusion on 02/26/2021. Currently undergoing rehab at [facility]. Continue cyclobenzaprine and gabapentin. Analgesics available as needed for pain. Limit narcotics. PT/OT continued during inpatient stay. Discharged back to rehab center. (5) Hypothyroid: Code(s): E03.9 - Hypothyroidism, unspecified Status: Acute Assessment and Plan: TSH is within normal limits. Continue levothyroxine (6) Essential (primary) hypertension: Code(s): I10 - Essential (primary) hypertension Status: Chronic Assessment and Plan: Blood pressure reviewed and was generally well controlled. Continue lisinopril, furosemide, and spironolactone. DS: Summary Hospital Course Hospital Course: Date of admission: 03/17/21 Date of discharge: 03/19/21 Aleta Augustin is a 60-year-old female with a history Aldo-Danlos syndrome, rheumatoid arthritis, SLE, hypertension, constipation, hypothyroidism, and spinal stenosis. She is now s/p lumbar fusion procedure and is undergoing rehab at the [facility] acute rehab center. She presented to the emergency department on 03/17/2021 from rehab center due to nausea, vomiting, and constipation. On presentation to the emergency department, her vital signs were stable, she was afebrile, in CT abdomen/pelvis demonstrated moderate to large amount of colonic stool. She was admitted to the hospitalist service for further evaluation and management and was seen in consultation by Gastroenterology. Please see above for further details. She had several bowel movements following enema and laxatives. She should limit her narcotic use. Nausea and vomiting resolved entirely and she is able to tolerate a regular diet. Given her overall improvement, she was determined to no longer require inpatient care and was felt to be stable for discharge. We dis
[2021-03-19 14:00] VITALS: BP 119/70; PULSE 74; RESP 18; TEMP 35.7; O2SAT 100
[2021-03-19 16:36] LABS: Folic Acid > 20.0 ng/mL (2.76->20); Vitamin B12 > 1000.0 pg/mL (239-931)
[2021-03-19 17:32] LABS: Iron 16 ug/dL (37-170)
[2021-03-19 17:41] LABS: Percent Iron Saturation 6 % (20-50)
== END 2021-03-19 15:30 ==
LOC: ANHED 17:57 → ANH3MED 18:18
PROVIDERS: Nurse Practitioner; Admitting Provider Internal Medicine Nephrology; Emergency Provider Emergency Medicine; PCP Family Medicine; Visit Provider Physician Assistant
DX: K59.03 Drug induced constipation (principal); R82.90 Unspecified abnormal findings in urine; D64.9 Anemia, unspecified; F41.9 Anxiety disorder, unspecified; M06.9 Rheumatoid arthritis, unspecified; E03.9 Hypothyroidism, unspecified; Q79.60 Ehlers-Danlos syndrome, unspecified; I10 Essential (primary) hypertension; Z98.1 Arthrodesis status
CPT/HCPCS: 36415; 74177; 80048; 80053; 81001; 82607; 82728; 82746; 83540; 83550; 83615; 83735; 84443; 85025; 85027; 87086; 87088; 96361; 96365; 96375; 96376; 97161; 97165; 99285; A9270; G0378; J0696; J1170; J2212; J2405; J2765; J7030; Q9967

== ENCOUNTER → 2021-10-23 12:24 | Outpatient (CLI) | payer MEDICARE, SELFPAY ==
--- NOTE | ~2021-10-23 | XR_ITS ---
XR ribs LT 2V w CXR 2V DATE: 10/23/2021 12:51 INDICATION: Left chest pain TECHNIQUE: 2 view chest. 3 views of the left ribs. COMPARISON: 06/25/2016 CTA chest 01/02/2013 two-view chest FINDINGS: Diffuse osteopenia. Implanted monitor device is noted in the lower anterior medial chest wall. Spinal rods and pedicle screws are noted bilaterally from the upper lumbar the lower lumbar area.. St atus post interbody spinal fusion at L4-5 and L5-S1. No recent left rib fracture or bone destruction is detected. There is severe osteoarthritic change at the left glenohumeral joint. Normal heart size. No hilar or mediastinal enlargement. No pulmonary infiltrate or consolidation, ple ural effusion or pulmonary vascular congestion or pneumothorax. Colonic hepatic flexure interposition between diaphragm and liver. There are some nondilated gas cont aining small bowel segments in the right upper quadrant. IMPRESSION: No left rib fracture is noted No active cardiopulmonary disease Thoracic and lumbar spinal rods, lower lumbar spinal surgical fusion Reviewed, dictated and finalized at location A.
== END ==
PROVIDERS: PCP Family Medicine; Visit Provider Family Medicine
DX: R07.81 Pleurodynia (principal); Q76.6 Other congenital malformations of ribs; Z98.1 Arthrodesis status
CPT/HCPCS: 71046; 71100

== ENCOUNTER 2022-02-11 13:53 | Outpatient (CLI) | payer MEDICARE, SELFPAY ==
--- NOTE | ~2022-02-11 | MM_ITS ---
EXAMINATION: MM screening maranda BI w chang HISTORY: Screening mammogram TECHNIQUE: Craniocaudal and mediolateral oblique 3-D tomosynthesis images were obtained and synthetic 2-D images were generated. CAD analysis was submitted and interpreted. COMPARISON: 12/05/2020, 08/17/2019, 06/27/2015 bilateral screening mammogram examinations BREAST PARENCHYMAL COMPOSITION: The breasts are heterogeneously dense, which may obscure small masses . FINDINGS: Loop recorder is again noted on the left. There is no evidence of suspicious mass, calcific ation, or architectural distortion to suggest malignancy in either breast. There has been no suspicio us interval change. IMPRESSION: 1. No mammographic evidence of malignancy. 2. Recommend routine screening mammography in one year. BI-RADS Category 1: Negative Reviewed, dictated and finalized at location A.
== END 2022-02-11 13:54 | disposition home or self-care (01) ==
LOC: ANHIMG 13:55
PROVIDERS: PCP Family Medicine; Visit Provider Family Medicine
DX: Z12.31 Encounter for screening mammogram for malignant neoplasm of breast (principal)
CPT/HCPCS: 77063; 77067

== ENCOUNTER 2022-05-19 01:27 | Day surgery (SDC) | payer MEDICARE, SELFPAY ==
[2022-05-18 14:38] VITALS: BMI 27.8
[2022-05-19 07:48] VITALS: BP 108/61; PULSE 56; RESP 15; TEMP 36.1; O2SAT 100; BMI 28.6
--- NOTE | 2022-05-19 08:37 | WPDHPUPDATE1 ---
History and Physical Update Update Date/Time: 05/19/22 08:37 Aleta Henson is a 61-year-old female patient of Dr. Kern with history of syncope and presyncope. She had an implantable loop recorder placed in 2018 or 2019 which has reached ANALY and she is here for a loop recorder explant. She has not shown any arrhythmias and her syncope is thought to be vasodepressor. She is feeling well today and has been NPO. She also has a history of hypertension, thyroid disease, and mild mitral valve prolapse. History and Physical has been reviewed, including an updated exam of the patient. There are NO changes in the patient's condition. Risks, benefits, and alternatives have been discussed and questions answered. Patient agrees to proceed with procedure.
--- NOTE | 2022-05-19 08:39 | WPDMODSED ---
Moderate Sedation Note-Pt Data Patient Data Diagnosis: Loop recorder at ANALY Present Complaint: History of syncope, status post loop recorder implant which has reached ANALY. Patient is here for loop recorder explant. She show no arrhythmias and her syncope and presyncope is thought to be vasovagal. She is accompanied by her friend, Riddhi. Procedure to be performed/Plan: Loop recorder explant with local anesthesia Possible moderate sedation Allergies Allergy/AdvReac Type Severity Reaction Status Date / Time diclofenac Allergy Severe HIVES AND Verified 05/19/22 07:45 SWELLING walnut Allergy Severe Anaphylactic Verified 05/19/22 07:45 Shock bacitracin Allergy Mild BLISTERS Verified 05/19/22 07:45 neomycin Allergy Mild BLISTERS Verified 05/19/22 07:45 banana Allergy Unknown RASH AND Verified 05/19/22 07:45 ITCHING chocolate flavor Allergy Unknown Rash Verified 05/19/22 07:45 collagenase Clostridium Allergy Unknown Unknown Verified 05/19/22 07:45 histolyticu gramicidin D Allergy Unknown Unknown Verified 05/19/22 07:45 hydroxychloroquine Allergy Unknown Unknown Verified 05/19/22 07:45 ibuprofen Allergy Unknown SWELLING Verified 05/19/22 07:45 latex Allergy Unknown Other Verified 05/19/22 07:45 peach Allergy Unknown RASH Verified 05/19/22 07:45 pecan nut Allergy Unknown Swelling Verified 05/19/22 07:45 of Lip/Tongue/Throat polymyxin B Allergy Unknown Unknown Verified 05/19/22 07:45 pregabalin Allergy Unknown UNKNOWN Verified 05/19/22 07:45 strawberry Allergy Unknown RASH Verified 05/19/22 07:45 sunflower seed Allergy Unknown Swelling Verified 05/19/22 07:45 of Lip/Tongue/Throat Home Medications Medication Instructions Recorded Confirmed Type cyclosporine 0.05 % eye drops in a 1 drop ophthalmic (eye) Q12H 07/24/19 05/18/22 History dropperette (Restasis) methotrexate sodium 2.5 mg tablet 25 mg PO WEEKLY 07/24/19 05/18/22 History folic acid 1 mg tablet 1 mg PO DAILY #90 tabs 12/05/20 05/18/22 Rx ascorbic acid (vitamin C) 500 mg 500 mg PO DAILY #30 tabs 03/20/21 05/18/22 Rx tablet (Vitamin C) fluticasone propionate 50 See Rx Instructions .Route 06/16/21 05/18/22 Rx mcg/actuation nasal .COMPLEX #48 grams spray,suspension baclofen 20 mg tablet 20 mg PO BID PRN spasms #180 tabs 07/23/21 05/18/22 Rx buspirone 10 mg tablet 10 mg PO TID #270 tabs 08/14/21 05/19/22 Rx gabapentin 300 mg capsule 900 mg PO TID #810 caps 08/14/21 05/19/22 Rx levothyroxine 200 mcg tablet See Rx Instructions .Route 12/16/21 05/19/22 Rx .COMPLEX #90 tabs meloxicam 15 mg tablet 15 mg PO DAILY #90 tabs 12/16/21 05/19/22 Rx furosemide 20 mg tablet See Rx Instructions .Route 02/04/22 05/18/22 Rx .COMPLEX #90 tabs Calcium Citrate + D 1,200 mg PO DAILY 05/18/22 05/18/22 History Colace 100 mg PO BID 05/18/22 05/19/22 History Lasix 20 mg PO DAILY 05/18/22 05/18/22 History acidophilus-pectin, citrus 10 mg PO DAILY 05/18/22 05/19/22 History budesonide 0.5 mg/2 mL suspension See Rx Instructions .Route .COMPLEX 05/18/22 05/18/22 History for nebulization folic acid 1 mg tablet 1 mg PO DAILY 05/18/22 05/18/22 History gentamicin 0.1 % topical cream 1 applic topical DAILY 05/18/22 05/18/22 History lisinopril 20 mg tablet 40 mg PO DAILY 05/18/22 05/19/22 History magnesium oxide 400 mg PO BID 05/18/22 05/19/22 History omeprazole 20 mg capsule,delayed 20 mg PO DAILY 05/18/22 05/19/22 History release silver sulfadiazine 1 unit topical DAILY 05/18/22 05/18/22 History spironolactone 25 mg PO DAILY 05/18/22 05/18/22 History spironolactone 25 mg tablet 25 mg PO DAILY 05/18/22 05/19/22 History Sedation/Anesthesia: No previous sedation/anesthesia problems (including family history). [facility] Past Medical History Medical History Anxiety Chronic constipation Chronic right hip pain Aldo-Danlos syndrome Essential (primary) hypertension Hypothyroid Low back pain Mixed
--- NOTE | 2022-05-19 09:18 | PM.OP ---
Procedure Note - Brief Procedure Note - Brief Date of procedure: 05/19/22 Pre-op diagnosis: loop at ANALY Procedure performed: Status post loop recorder explant Description of procedure: uneventful explant Surgeon: Michelle Penaloza MD Condition: Stable Disposition: Observation
--- NOTE | 2022-05-19 09:19 | P.OP_ITS ---
Procedure Note - Detailed Date of Procedure 05/19/22 Pre-op Diagnosis loop at ANALY Post-op Diagnosis Other ( status post loop recorder explant) Procedure Performed loop recorder explant Surgeon Michelle Penaloza MD Anesthesia Local Indications loop recorder at end of life Description of Procedure After informed consent the patient was taken into the orthodontic laboratory technician. The left parasternal area was prepped and draped. Anesthesia was obtained using 1% lidocaine. A skin incision was made and carried down to the loop recorder with blunt and sharp dissection. The capsule was incised. The device was grasped with forceps and delivered from the pocket. The pocket was irrigated with sterile saline + Ancef solution. Hemostasis was obtained with local compression. the subcutaneous tissues were closed with 2-0 Vicryl. A skin adhesive and sterile dressing were applied. The patient tolerated the procedure well. There were no complications. Blood loss was negligible. Estimated Blood Loss 1 Complications No immediate complications Condition Stable Disposition Observation
[2022-05-19 09:25] VITALS: BP 143/73; PULSE 58; RESP 18; O2SAT 100
== END 2022-05-19 09:47 | disposition home or self-care (01) ==
PROVIDERS: PCP Family Medicine; Visit Provider Internal Medicine Cardiovascular Disease
PROC: (CPT 33286; principal; 2022-05-19 08:30)
DX: Z45.09 Encounter for adjustment and management of other cardiac device (principal); R55 Syncope and collapse; I10 Essential (primary) hypertension; Q79.60 Ehlers-Danlos syndrome, unspecified; M06.9 Rheumatoid arthritis, unspecified; M32.9 Systemic lupus erythematosus, unspecified; E78.2 Mixed hyperlipidemia; E03.9 Hypothyroidism, unspecified; M81.0 Age-related osteoporosis without current pathological fracture; I34.1 Nonrheumatic mitral (valve) prolapse; K59.09 Other constipation; Z98.1 Arthrodesis status; Z79.51 Long term (current) use of inhaled steroids
CPT/HCPCS: 33286; J0690

== ENCOUNTER → 2022-12-15 13:56 | Outpatient (CLI) | payer MEDICARE, OTHER, SELFPAY ==
--- NOTE | ~2022-12-15 | XR_ITS ---
EXAMINATION: XR ankle RT 2V, XR foot RT 2V DATE: 12/15/2022 14:57 INDICATION: Multiple joint pain. Rheumatoid arthritis. TECHNIQUE: 1. Anteroposterior and lateral view of the right ankle were obtained. 2. Dorsoplantar and lateral views of the right foot were obtained. COMPARISON: 11/03/2013 FINDINGS: Pes planus and metatarsus adductus. Callus formation associated with chronic likely stress fractures of the proximal diaphyses of the right fourth and fifth metatarsals. There is increased lucency along the fourth metatarsal fracture when compared with the earlier study which suggests a chronic nonunio n. The fifth metatarsal fracture remains spanned by a proximal to distal length of cannulated lag scr ew also with unchanged linear lucency across the fracture line and also potentially still ununited. N o acute fractures identified. Mild polyarticular osteoarthritis at the first metatarsophalangeal join t and many of the remaining joints in the mid and forefoot. Small plantar calcaneal spur. No right an kle joint effusion. A few dystrophic calcifications in the soft tissues of the distal lower leg. IMPRESSION: 1. Residual lucency along chronic proximal diaphyseal fractures of the right fourth and fifth metatar sals suggesting chronic nonunion, the latter with unchanged lag screw fixation. 2. Mild polyarticular osteoarthritis in the right mid and forefoot. Reviewed, dictated and finalized at location A. IMPRESSION: 1. Residual lucency along chronic proximal diaphyseal fractures of the right fo urth and fifth metatarsals suggesting chronic nonunion, the latter with unchang ed lag screw fixation. 2. Mild polyarticular osteoarthritis in the right mid and forefoot.
--- NOTE | ~2022-12-15 | XR_ITS ---
EXAMINATION: XR sacroiliac joints min 3V DATE: 12/15/2022 14:59 INDICATION: Chronic bilateral low back pain with bilateral sciatica TECHNIQUE: AP and left and right oblique views of the bilateral sacroiliac joints were obtained. COMPARISON: CT dated 03/17/2021 FINDINGS: Postoperative changes at the visualized lumbosacral spine which include L4 and L5 laminectomies as we ll as interspinal fusion with bone graft cages at L4-L5 and L5-S1. The visualized caudal aspect of a more extensive thoracolumbar posterior spinal fusion includes bilateral vertical delvin and pedicle scre ws at L4-S1 along with bilateral iliac screws and a single left-sided pedicle screw at L3. The right sided screw at L3 appears to been removed in the interval since the prior imaging. The bilateral sacr oiliac joints appear to remain unfused with mild osteoarthritis. No erosions to suggest an inflammato ry sacroiliitis. There is mild right-sided and moderate left-sided hip osteoarthritis. IMPRESSION: 1. Mild bilateral sacroiliac osteoarthritis and mild right and moderate left hip osteoarthritis. 2. Postoperative change including instrumented anterior and posterior spinal fusion with bilateral il iac screws in the visualized lumbosacral spine as detailed above. Reviewed, dictated and finalized at location B. IMPRESSION: 1. Mild bilateral sacroiliac osteoarthritis and mild right and moderate left hi p osteoarthritis. 2. Postoperative change including instrumented anterior and posterior spinal fu hemalatha with bilateral iliac screws in the visualized lumbosacral spine as detaile d above.
--- NOTE | ~2022-12-15 | XR_ITS ---
EXAMINATION: XR wrist RT 2V, XR hand LT 2V, XR hand RT 2V, XR wrist LT 2V DATE: 12/15/2022 14:57 INDICATION: Multiple joint pain TECHNIQUE: 1. Posteroanterior and lateral views of the right wrist were obtained. 2. Dorsal palmar and lateral views of the right hand were obtained. 3. Posteroanterior and lateral views of the left wrist were obtained. 2. Dorsal palmar and lateral views of the left hand were obtained. COMPARISON: None. FINDINGS: Right hand and wrist: No fracture. Palmar subluxation at the second-fourth metacarpophalangeal joints with moderate to tobi re associated osteoarthritis with prominent hypertrophic change along the heads of the metacarpals. A dditional severe osteoarthritis at the first carpometacarpal joint with mild dorsal subluxation. Mild osteoarthritis at the triscaphe, first metacarpophalangeal and several interphalangeal joints. Sever al small periarticular ossicles at the first carpometacarpal, second and third metacarpophalangeal an d second-fourth proximal interphalangeal joints which could represent degenerative loose osteochondra l bodies are heterotopic ossicles. No erosions identified. Left hand and wrist: No fracture. Similar pattern of severe osteoarthritis at the first carpometacarpal joint and second-f ourth metacarpophalangeal joints. Similarly there is some dorsal subluxation at the first carpal meta carpal joint and slightly less severe palmar subluxation at the second and third metacarpophalangeal joints. There is also a similar periarticular distribution of a few small loose osteochondral bodies versus heterotopic ossicles. Mild osteoarthritis at the triscaphe joint. No erosions. IMPRESSION: 1. Similar relatively symmetric pattern of severe osteoarthritis at the lateral first carpometacarpal and second-fourth metacarpophalangeal joints, all but the left fourth metacarpophalangeal joint with some associated secondary mild subluxations as detailed above. Although no erosions are seen, the at ypical distribution for osteoarthritis involving the metacarpophalangeal joints suggests this could b e secondary to superimposed inflammatory arthritis which with this distribution would include rheumat oid arthritis or calcium pyrophosphate deposition (CPPD) disease. Reviewed, dictated and finalized at location B. IMPRESSION: 1. Similar relatively symmetric pattern of severe osteoarthritis at the lateral first carpometacarpal and second-fourth metacarpophalangeal joints, all but th e left fourth metacarpophalangeal joint with some associated secondary mild sub luxations as detailed above. Although no erosions are seen, the atypical distri bution for osteoarthritis involving the metacarpophalangeal joints suggests thi s could be secondary to superimposed inflammatory arthritis which with this dis tribution would include rheumatoid arthritis or calcium pyrophosphate depositio n (CPPD) disease. IMPRESSION: 1. Similar relatively symmetric pattern of severe osteoarthritis at the lateral first carpometacarpal and second-fourth metacarpophalangeal joints, all but th e left fourth metacarpophalangeal joint with some associated secondary mild sub luxations as detailed above. Although no erosions are seen, the atypical distri bution for osteoarthritis involving the metacarpophalangeal joints suggests thi s could be secondary to superimposed inflammatory arthritis which with this dis tribution would include rheumatoid arthritis or calcium pyrophosphate depositio n (CPPD) disease.
--- NOTE | ~2022-12-15 | XR_ITS ---
EXAMINATION: XR ankle LT 2V, XR foot LT 2V DATE: 12/15/2022 14:57 INDICATION: Multiple joint pain. Rheumatoid arthritis. TECHNIQUE: 1. Anteroposterior and lateral view of the left ankle were obtained. 2. Dorsoplantar and lateral views of the left foot were obtained. COMPARISON: 06/05/2016 FINDINGS: Again seen is proximal to distal leg screw fixation at the fifth metatarsal likely for old healed fra cture. Interval hindfoot arthrodesis which includes a pair of lag screw spanning the subtalar joint a nd leg screws and plate and screw fixation spanning both the talonavicular and calcaneocuboid joints. The hindfoot has been fused with persistent pes planus. Couple round lucencies at the medial cuneifo rm which also likely postoperative in etiology. No acute fracture. Polyarticular osteoarthritis, mode rate severity at the first metatarsophalangeal joint and mild at the ankle and joints the remaining j oints in the mid and forefoot. No erosions to suggest inflammatory arthritis. No soft tissue swelling or ankle joint effusion. Dystrophic calcifications in the soft tissues at the visualized lower leg. IMPRESSION: 1. Postoperative changes in the left foot as detailed above including a new instrumented hindfoot art hrodesis. 2. Mild to moderate osteoarthritis at the left foot and ankle. No acute osseous abnormality. Reviewed, dictated and finalized at location A. IMPRESSION: 1. Postoperative changes in the left foot as detailed above including a new ins trumented hindfoot arthrodesis. 2. Mild to moderate osteoarthritis at the left foot and ankle. No acute osseous abnormality.
== END ==
PROVIDERS: PCP Family Medicine; Visit Provider Internal Medicine Rheumatology
DX: R53.81 Other malaise (principal); M79.10 Myalgia, unspecified site; M25.50 Pain in unspecified joint; M15.9 Polyosteoarthritis, unspecified; Z87.81 Personal history of (healed) traumatic fracture
CPT/HCPCS: 72202; 73100; 73120; 73600; 73620

== ENCOUNTER → 2023-03-01 12:28 | Outpatient (CLI) | payer MEDICARE, OTHER, SELFPAY ==
--- NOTE | ~2023-03-01 | XR_ITS ---
EXAMINATION: XR chest 2V Exam Date/Time: 03/01/2023 12:31 CDT HISTORY: SOB,cough Comparison: 10/23/2021. RESULT: Lines, tubes, and devices: Extensive thoracolumbar hardware, no evident complication. Lungs and pleura: Segmental right lower lobe airspace disease. Cardiomediastinal silhouette: Stable. Other: No acute osseous or upper abdominal finding. IMPRESSION: Right lower lobe airspace disease suspicious for pneumonia. Reviewed, dictated and finalized at location K.
== END ==
PROVIDERS: PCP Family Medicine; Visit Provider Family Medicine
DX: R06.02 Shortness of breath (principal); R50.9 Fever, unspecified; R91.8 Other nonspecific abnormal finding of lung field
CPT/HCPCS: 71046

== ENCOUNTER → 2023-03-24 15:47 | Outpatient (CLI) | payer MEDICARE, OTHER, SELFPAY ==
--- NOTE | ~2023-03-24 | US_ITS ---
EXAMINATION: US renal BI DATE: 03/24/2023 16:12 INDICATION: Essential hypertension. Elevated creatinine. TECHNIQUE: Multiple ultrasound grayscale images of the kidneys were obtained. COMPARISON: CT abdomen pelvis dated 03/17/2021 FINDINGS: The right kidney measures 8.7 x 4.4 x 6.0 cm. The left kidney measures 8.6 x 4.2 x 5.1 cm. The kidney s demonstrate normal echogenicity. 2.4 cm anechoic exophytic cyst at the lower pole of the left kidne y. There is no hydronephrosis in either kidney. No stones identified. The bladder is normal. IMPRESSION: 1. 2.4 cm left renal cyst. Otherwise normal kidneys without hydronephrosis. Reviewed, dictated and finalized at location A.
== END ==
PROVIDERS: PCP Family Medicine; Visit Provider Internal Medicine Nephrology
DX: R79.89 Other specified abnormal findings of blood chemistry (principal); N28.1 Cyst of kidney, acquired
CPT/HCPCS: 76775

== ENCOUNTER → 2023-04-09 14:47 | Outpatient (CLI) | payer MEDICARE, OTHER, SELFPAY ==
--- NOTE | ~2023-04-09 | XR_ITS ---
XR chest 2V 04/09/2023 14:58 Indication: Follow-up pneumonia Procedure: 2 view chest Comparison: Comparison to multiple prior studies sequentially, with oldest reviewed study dated . Findings: Heart size normal. No focal air space disease, pulmonary edema, pleural effusion or suspect ed pneumothorax. Hayes rods are present. No acute osseous abnormality. Impression: 1: No acute cardiopulmonary disease. Reviewed, dictated and finalized at location A. Impression: 1: No acute cardiopulmonary disease.
== END ==
PROVIDERS: PCP Family Medicine; Visit Provider Family Medicine
DX: J18.9 Pneumonia, unspecified organism (principal); R05.9 Cough, unspecified; R50.9 Fever, unspecified
CPT/HCPCS: 71046

== ENCOUNTER → 2023-04-22 14:47 | Outpatient (CLI) | payer MEDICARE, OTHER, SELFPAY ==
--- NOTE | ~2023-04-22 | MM_ITS ---
EXAMINATION: MM screening maranda BI w chang HISTORY: Screening mammogram, family history of breast cancer in her mother. TECHNIQUE: Craniocaudal and mediolateral oblique 3-D tomosynthesis images were obtained and synthetic 2-D images were generated. CAD analysis was submitted and interpreted. COMPARISON: 02/11/2022, 12/09/2020, 08/17/2019 BREAST PARENCHYMAL COMPOSITION: There are scattered areas of fibroglandular density. FINDINGS: RIGHT BREAST: An asymmetry is present in the anterior/middle third of the slightly inner breast 3 cm from the nipple on the craniocaudal view. LEFT BREAST: No suspicious mass, calcification, or architectural distortion are identified to suggest malignancy. There has been no suspicious interval change. IMPRESSION: 1. Right breast asymmetry on the craniocaudal view. 2. Additional mammographic views and possible breast ultrasound are recommended. BI-RADS Category 0: Incomplete: Needs additional imaging evaluation. Reviewed, dictated and finalized at location A. IMPRESSION: 1. Right breast asymmetry on the craniocaudal view. 2. Additional mammographic views and possible breast ultrasound are recommended . BI-RADS Category 0: Incomplete: Needs additional imaging evaluation.
== END ==
PROVIDERS: PCP Family Medicine; Visit Provider Family Medicine
DX: Z12.31 Encounter for screening mammogram for malignant neoplasm of breast (principal); R92.8 Other abnormal and inconclusive findings on diagnostic imaging of breast
CPT/HCPCS: 77063; 77067

== ENCOUNTER → 2023-05-13 08:39 | Outpatient (CLI) | payer MEDICARE, OTHER, SELFPAY ==
--- NOTE | ~2023-05-13 | MMUS_ITS ---
EXAMINATION: MM diagnostic maranda RT w chang, US breast RT limited HISTORY: Anterior/middle third slightly inner right breast 3 cm from the nipple asymmetry TECHNIQUE: Additional 3-D tomosynthesis images of the right breast were performed and synthetic 2-D i mages were generated. CAD analysis was submitted and interpreted. High resolution subareolar and uppe r inner and lower inner quadrant right breast ultrasound was performed. COMPARISON: 04/22/2022 bilateral screening mammogram FINDINGS: MAMMOGRAPHIC FINDINGS: No suspicious mass, architectural distortion, malignant calcification, skin thickening or retraction is detected. ULTRASOUND: 2:00 4 cm from nipple: There is an angular mildly irregular hypoechoic approximately 3.6 x 4.1 x 4.3 mm mass with prominent adjacent color flow signal. The irregularity and irregular margins and promine nt vascularity or suspicious. Ultrasound-guided biopsy is recommended. Subareolar: Parallel circumscribed 2.6 x 4.3 mm hypoechoic lesion without internal vascularity or pos terior shadowing, likely benign IMPRESSION: 1. Irregular angular approximately 4.3 mm mass with prominent adjacent vascularity at 2:00 4 cm from nipple 2. Ultrasound-guided biopsy of 2:00 right breast lesion is recommended BI-RADS category 4, suspicious findings. Dr. Ramírez telephoned the report and ultrasound-guided biopsy recommendation on 05/13/[address] at [address] Sanjeev Abreu. Reviewed, dictated and finalized at location A. IMPRESSION: 1. Irregular angular approximately 4.3 mm mass with prominent adjacent vascular ity at 2:00 4 cm from nipple 2. Ultrasound-guided biopsy of 2:00 right breast lesion is recommended BI-RADS category 4, suspicious findings. Dr. Ramírez telephoned the report and ultrasound-guided biopsy recommendation on at [address] Sanjeev Abreu.
== END ==
PROVIDERS: PCP Family Medicine; Visit Provider Family Medicine
DX: R92.8 Other abnormal and inconclusive findings on diagnostic imaging of breast (principal)
CPT/HCPCS: 76642; 77061; 77065; G0279

== ENCOUNTER 2023-06-01 09:56 | Outpatient (CLI) | payer MEDICARE, OTHER, SELFPAY ==
--- NOTE | ~2023-06-01 | US_ITS ---
EXAMINATION: Consultation US INDICATION: Patient presents for ultrasound-guided biopsy of a right breast mass at the 2:00 location . TECHNIQUE: Limited right breast ultrasound is performed. COMPARISON: 05/13/2023 FINDINGS: With real-time scanning, no definite sonographic mass is identified for targeted biopsy. Th is was discussed with the patient and a course of six-month follow-up was agreed upon. IMPRESSION: 1. No definite right breast mass identified for ultrasound-guided biopsy. Follow-up right diagnostic mammogram and possible right breast ultrasound in six months are recommended. BI-RADS category 3, probably benign findings. Reviewed, dictated and finalized at location A. SOLUTIONS SALES CONSULTANT IMPRESSION: 1. No definite right breast mass identified for ultrasound-guided biopsy. Follo w-up right diagnostic mammogram and possible right breast ultrasound in six mon ths are recommended. BI-RADS category 3, probably benign findings.
== END 2023-06-01 09:57 | disposition home or self-care (01) ==
LOC: ANHIMG 10:05
PROVIDERS: PCP Family Medicine; Visit Provider Family Medicine
DX: R92.8 Other abnormal and inconclusive findings on diagnostic imaging of breast (principal)
CPT/HCPCS: 99199

== ENCOUNTER → 2023-06-14 11:49 | Outpatient (CLI) | payer MEDICARE, OTHER, SELFPAY ==
--- NOTE | ~2023-06-14 | XR_ITS ---
EXAMINATION: XR ribs LT 2V DATE: 06/14/2023 12:00 INDICATION: Left lower anterior rib protrusion. TECHNIQUE: 2 views of the left ribs on 3 radiographs were obtained. COMPARISON: Chest 2 views 04/09/2023 FINDINGS: There is no left-sided pneumonia, pleural effusion, or pneumothorax. The heart size is norm al. There are changes of posterior fusion procedure in thoracolumbar spine. IMPRESSION: 1. No abnormal rib mass or fracture. Reviewed, dictated and finalized at location A. CTOR OF CONSULTING SERVICES
== END ==
PROVIDERS: PCP Family Medicine; Visit Provider Family Medicine
DX: M95.4 Acquired deformity of chest and rib (principal)
CPT/HCPCS: 71100

== ENCOUNTER 2023-07-22 15:06 | Outpatient (CLI) | payer MEDICARE, OTHER, SELFPAY ==
--- NOTE | ~2023-07-22 | XR_ITS ---
EXAMINATION: XR knee RT min 4V DATE: 07/22/2023 15:27 INDICATION: Right knee pain. TECHNIQUE: 4 views of right knee were obtained. COMPARISON: None. FINDINGS: There is a total right knee arthroplasty with patellar resurfacing in near-anatomic alignme nt. No fracture. No periprosthetic lucency to suggest loosening or infection. There is a small knee j oint effusion. IMPRESSION: 1. Total right knee arthroplasty in near-anatomic alignment. 2. Small right knee joint effusion. Reviewed, dictated and finalized at location E. ST TRIMMER
--- NOTE | ~2023-07-22 | XR_ITS ---
XR knee LT min 4V DATE: 07/22/2023 15:27 INDICATION: Right knee pain TECHNIQUE: [place] and standing PA upright and lateral views COMPARISON: None FINDINGS: There is an approximately 8 mm x 30 mm oval area of somewhat stippled appearing calcificati on along the distal anterior aspect of the femoral diametaphysis immediately superior to the upper an terior aspect of the distal femoral articular prosthesis. This might represent some calcification wit hin the suprapatellar bursa or calcified hematoma. Status post left total knee arthroplasty. No fracture or dislocation, periosteal reaction or bone alivia truction is detected. IMPRESSION: Suprapatellar soft tissue calcification Status post left total knee arthroplasty Reviewed, dictated and finalized at location L. 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
== END 2023-07-22 15:07 | disposition home or self-care (01) ==
LOC: ANHIMG 15:08
PROVIDERS: PCP Family Medicine; Visit Provider Orthopaedic Surgery
DX: M25.461 Effusion, right knee (principal); M25.862 Other specified joint disorders, left knee; Z96.653 Presence of artificial knee joint, bilateral
CPT/HCPCS: 73564

== ENCOUNTER 2023-08-20 18:55 | Emergency (ER) | payer MEDICARE, OTHER, SELFPAY ==
[2023-08-20 19:10] VITALS: BP 94/57; PULSE 63; RESP 18; TEMP 36.5; O2SAT 100
[2023-08-20 19:11] VITALS: BP 94/57; PULSE 63; RESP 18; TEMP 36.5; O2SAT 100
--- NOTE | 2023-08-20 19:35 | ED.WOUNDLAC ---
HPI - Wound/Laceration General Chief Complaint: Wound/Laceration Stated Complaint: finger laceration Time Seen by Provider: 08/20/23 19:36 Source: patient, RN notes reviewed and old records reviewed Mode of arrival: ambulatory Limitations: no limitations History of Present Illness HPI narrative: 62-year-old female presents to the [facility] with complaints of a laceration/ stab of skin tDAp01/31/16 Patient states she had a very sharp knife and the tip with a nice went through the side of her 2nd finger left hand. Bleeding is controlled. Happened within 1 hour prior to arrival Related Data Home Medications Medication Instructions Recorded Confirmed cyclosporine 0.05 % eye drops in a 1 drp EACH EYE Q12H 02/08/23 08/20/23 dropperette (Restasis) calcium citrate 315 mg-vitamin D3 2 tablet PO DAILY 02/16/23 08/20/23 5 mcg (200 unit) tablet (Calcium Citrate + D) Allergies Allergy/AdvReac Type Severity Reaction Status Date / Time diclofenac Allergy Severe HIVES AND Verified 08/20/23 19:10 SWELLING walnut Allergy Severe Anaphylactic Verified 08/20/23 19:10 Shock bacitracin Allergy Mild BLISTERS Verified 08/20/23 19:10 neomycin Allergy Mild BLISTERS Verified 08/20/23 19:10 banana Allergy Unknown RASH AND Verified 08/20/23 19:10 ITCHING chlorhexidine Allergy Unknown Rash Verified 08/20/23 19:10 chocolate flavor Allergy Unknown Rash Verified 08/20/23 19:10 collagenase Clostridium Allergy Unknown Unknown Verified 08/20/23 19:10 histolyticu gramicidin D Allergy Unknown Unknown Verified 08/20/23 19:10 hydroxychloroquine Allergy Unknown Unknown Verified 08/20/23 19:10 latex Allergy Unknown Other Verified 08/20/23 19:10 naproxen Allergy Unknown Swelling Verified 08/20/23 19:10 peach Allergy Unknown RASH Verified 08/20/23 19:10 pecan nut Allergy Unknown Swelling Verified 08/20/23 19:10 of Lip/Tongue/Throat petrolatum,white Allergy Unknown Blister Verified 08/20/23 19:10 [From Petroleum Jelly] polymyxin B Allergy Unknown Unknown Verified 08/20/23 19:10 pregabalin Allergy Unknown UNKNOWN Verified 08/20/23 19:10 strawberry Allergy Unknown RASH Verified 08/20/23 19:10 sunflower seed Allergy Unknown Swelling Verified 08/20/23 19:10 of Lip/Tongue/Throat mupirocin Allergy Rash Verified 08/20/23 19:10 oxycodone AdvReac Unknown Other Verified 08/20/23 19:10 azithromycin [From Zithromax] AdvReac It doesn't Verified 08/20/23 19:10 work for her tenecteplase AdvReac Other Verified 08/20/23 19:10 Review of Systems Review of Systems: All systems reviewed & are unremarkable except as noted in HPI and below Constitutional: Constitutional: Reports no additional constitutional complaints Eyes: Eyes: Reports no additional eye complaints ENT: Reports system reviewed and no additional complaints, except as documented Cardiovascular: Cardiovascular: Reports no additional cardiovascular complaints, Denies chest pain and Denies dyspnea Respiratory: Respiratory: Reports no additional respiratory complaints, Denies chest congestion, Denies cough and Denies dyspnea Gastrointestinal: Gastrointestinal: Reports no additional gastrointestinal complaints, Denies abdominal pain, Denies nausea and Denies vomiting Musculoskeletal: Musculoskeletal: Reports no additional musculoskeletal complaints Integumentary/Breasts: Skin/Breast: Reports as per HPI and Reports wounds Neurologic: Reports system reviewed and no additional complaints, except as documented Psychiatric: Psychiatric: Reports no additional psychiatric complaints Allergic/Immunologic: Allergic/Immunologic: Reports no additional allergic/immunologic complaints [facility] Past Medical History Medical History Anxiety Chronic constipation Chronic right hip pain Aldo-Danlos syndrome Essential (primary) hypertension Hypothyroid Instability of internal left knee prosthesis Low back katiana
[2023-08-20] MEDS: LIDOCAINE HCL 1% LOCAL INJ 2 ML AMPUL INFILTRATE (19:46)
--- NOTE | 2023-08-20 19:47 | PC.NURSE ---
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
[2023-08-20] MEDS: TETANUS,DIPHTHERIA,AC PERTUSSIS ADULT (0.5 ML) BOOSTRIX IM (20:12)
== END 2023-08-20 20:17 | disposition home or self-care (01) ==
PROVIDERS: Emergency Provider Nurse Practitioner; PCP Family Medicine
DX: S61.211A Laceration without foreign body of left index finger without damage to nail, initial encounter (principal); W26.0XXA Contact with knife, initial encounter; Z23 Encounter for immunization; Q79.60 Ehlers-Danlos syndrome, unspecified; I10 Essential (primary) hypertension; E03.9 Hypothyroidism, unspecified; E78.2 Mixed hyperlipidemia; I34.1 Nonrheumatic mitral (valve) prolapse; M81.0 Age-related osteoporosis without current pathological fracture; M06.9 Rheumatoid arthritis, unspecified; M32.9 Systemic lupus erythematosus, unspecified; M48.062 Spinal stenosis, lumbar region with neurogenic claudication; Z96.651 Presence of right artificial knee joint
CPT/HCPCS: 12001; 90471; 90715; 99212; G0463

== ENCOUNTER → 2023-09-03 15:24 | Outpatient (CLI) | payer MEDICARE, OTHER, SELFPAY ==
--- NOTE | ~2023-09-03 | US_ITS ---
EXAMINATION: US soft tissue LE RT DATE: 09/03/2023 15:52 INDICATION: Painful and palpable mass at the medial right upper thigh TECHNIQUE: Multiple grayscale and Doppler ultrasound images of the region of concern at the medial ri t upper thigh were obtained. COMPARISON: None FINDINGS: 4.1 x 1.4 x 2.7 cm ovoid mass in the subcutaneous fat which is isoechoic and with identical echotextu re as the surrounding subcutaneous fat most consistent with a lipoma. Within 1.5 cm the mass is monse l small subcutaneous vein. IMPRESSION: 1. Nonspecific 4.1 x 1.4 x 2.7 cm subcutaneous mass at the region of concern with imaging appearance most consistent with and statistically most likely to represent a lipoma. Reviewed, dictated and finalized at location A. N WINDER IMPRESSION: 1. Nonspecific 4.1 x 1.4 x 2.7 cm subcutaneous mass at the region of concern wi imaging appearance most consistent with and statistically most likely to rep resent a lipoma.
== END ==
PROVIDERS: PCP Nurse Practitioner Family; Visit Provider Nurse Practitioner Family
DX: R22.41 Localized swelling, mass and lump, right lower limb (principal)
CPT/HCPCS: 76882

== ENCOUNTER 2023-10-21 09:00 | Outpatient (CLI) | payer MEDICARE, OTHER, SELFPAY ==
--- NOTE | ~2023-10-21 | MMUS_ITS ---
EXAMINATION: MM diagnostic maranda RT w chang, US breast RT limited HISTORY: Follow-up right breast asymmetry/mass TECHNIQUE: Additional 3-D tomosynthesis images of the right breast were performed and synthetic 2-D i mages were generated. CAD analysis was submitted and interpreted. High resolution Limited right breas t ultrasound was performed. COMPARISON: Comparison to multiple prior studies sequentially, with oldest reviewed study dated 11/2022. BREAST PARENCHYMAL COMPOSITION: Not dense: There are scattered areas of fibroglandular density. FINDINGS: MAMMOGRAPHIC FINDINGS: Focal asymmetry central aspect of the right breast on CC view, middle third. There is no definite cor responding asymmetry seen on medial lateral or MLO views. ULTRASOUND: Limited right breast ultrasound: At 12:00, 4 cm from the nipple, there is an irregular shaped hypoech oic parallel oriented mass measuring 7 x 7 x 3 mm without posterior features. There is internal vascu larity. This likely corresponds to mass seen on prior ultrasound dated 05/13/2023, previously charact erized at 2:00, 4 cm from the nipple. No discrete mass identified at the 2:00 position, 4 cm from the nipple on the current examination. IMPRESSION: 1. Hypoechoic right breast mass located at 12:00, 4 cm from the nipple which likely corresponds to th e mammographic finding. 2. Ultrasound-guided right breast biopsy recommended. BI-RADS category 4, suspicious findings. Reviewed, dictated and finalized at location A. IMPRESSION: 1. Hypoechoic right breast mass located at 12:00, 4 cm from the nipple which galdino hendrix corresponds to the mammographic finding. 2. Ultrasound-guided right breast biopsy recommended. BI-RADS category 4, suspicious findings. IMPRESSION: 1. Hypoechoic right breast mass located at 12:00, 4 cm from the nipple which li ruma corresponds to the mammographic finding. 2. Ultrasound-guided right breast biopsy recommended. BI-RADS category 4, suspicious findings.
== END 2023-10-21 09:01 ==
LOC: MICIMG 09:02
PROVIDERS: PCP Family Medicine; Visit Provider Family Medicine
DX: R92.8 Other abnormal and inconclusive findings on diagnostic imaging of breast (principal)
CPT/HCPCS: 76642; 77061; 77065; G0279

== ENCOUNTER 2023-11-17 12:10 | Outpatient (CLI) | payer MEDICARE, OTHER, SELFPAY ==
[2023-11-17 12:32] LABS: Basophils Absolute Auto 0.1 K/mm3 (0.0-0.1); Basophils Percent Auto 1.2 % (0.2-1.2); Eosinophils Absolute Auto 0.5 K/mm3 (0-0.3); Eosinophils Percent Auto 7.1 % (0-4.4); Hematocrit 37.6 % (37.0-47.0); Hemoglobin 12.2 g/dL (12.0-15.0); Immature Granulocyte Absolute 0.01 K/mm3 (0.00-0.031); Immature Granulocyte Percent A 0.2 % (0-0.5); Immature Reticulocyte Fraction 3.4 % (3.0-15.9); Lymphocytes Absolute Auto 1.58 K/mm3 (0.9-3.2); Lymphocytes Percent Auto 24.5 % (18.3-44.2); Mean Corpuscular HGB Conc 32.4 g/dl (32-36); Mean Corpuscular Hemoglobin 32.2 pg (26-34); Mean Corpuscular Volume 99.2 fl (80-100); Mean Platelet Volume 10.2 fl (7.4-10.4); Monocytes Absolute Auto 0.6 K/mm3 (0.1-0.6); Monocytes Percent Auto 9.3 % (2.6-8.5); Neutrophils Absolute Auto 3.7 K/mm3 (1.3-6.7); Neutrophils Percent Auto 57.7 % (45.5-73.1); Platelet Count Result 255 k/mm3 (150-375); Red Blood Count 3.79 M/mm3 (4.2-5.4); Red Cell Distribution Width 13.4 % (11.5-14.5); Reticulocyte Hemoglobin Conten 33.9 pg (28.2-36.6); Reticulocyte Percent 0.68 % (0.7-4.3); Reticulocytes Absolute 0.03 10^6/uL (0.02-0.10); White Blood Count 6.5 K/mm3 (4.5-10.0)
[2023-11-17 16:41] LABS: Iron 92 ug/dL (37-170)
[2023-11-17 16:47] LABS: Alanine Aminotransferase 27 U/L (6-35); Alkaline Phosphatase 91 U/L (38-126); Anion Gap 6 mmol/L (4-12); Aspartate Amino Transferase 47 U/L (14-36); Bilirubin,Total 0.4 mg/dL (0.2-1.3); Blood Urea Nitrogen 31 mg/dL (7-17); Calcium 9.9 mg/dL (8.4-10.2); Carbon Dioxide 25 mmol/L (22-30); Chloride 107 mmol/L (98-107); Estimated Glomerular Filt Rate > 60; Glucose 85 mg/dL (65-110); Lactate Dehydrogenase 207 U/L (120-246); Potassium 4.8 mmol/L (3.4-5.0); Sodium 138 mmol/L (137-145)
[2023-11-17 16:51] LABS: Percent Iron Saturation 31 % (20-50)
[2023-11-17 18:00] LABS: Folic Acid > 20.0 ng/mL (2.76->20); Vitamin B12 > 1000.0 pg/mL (239-931)
[2023-11-19 09:48] LABS: Haptoglobin 128 mg/dL (43-212)
[2023-11-22 01:09] LABS: Methylmalonic Acid 135 nmol/L (87-318)
[2023-11-23 14:48] LABS: Soluble Transferrin Receptor 1.22 mg/L (0.76-1.76)
== END 2023-11-17 12:11 | disposition home or self-care (01) ==
LOC: ANHLAB 12:13
PROVIDERS: Nurse Practitioner Family; PCP Family Medicine; Visit Provider Internal Medicine Hematology & Oncology
DX: D64.9 Anemia, unspecified (principal)
CPT/HCPCS: 36415; 80053; 82607; 82728; 82746; 83010; 83540; 83550; 83615; 83921; 84238; 85025; 85046; 86880

== ENCOUNTER 2023-12-01 08:02 | Outpatient (CLI) | payer MEDICARE, OTHER, SELFPAY ==
--- NOTE | ~2023-12-01 | US_ITS ---
US breast RT limited DATE: 12/01/2023 09:12 INDICATION: The patient presented for ultrasound-guided biopsy of a 12:00 hypoechoic mass 4 cm from t he nipple. TECHNIQUE: Real-time and color flow imaging of the right breast targeted at 12:00 4 cm from nipple COMPARISON: Serial diagnostic right mammograms and right breast ultrasound examinations dating back t o 05/13/2023 and screening mammogram examinations dating back to 02/12/2020 were reviewed. FINDINGS: No suspicious mass or shadowing is detected at the area previously reported at 12:00 4 cm f rom the nipple. IMPRESSION: BI-RADS Category 1: Negative Recommendation: Routine annual mammographic screening Reviewed, dictated and finalized at [facility]. Reviewed, dictated and finalized at location [facility].
== END 2023-12-01 08:03 | disposition home or self-care (01) ==
PROVIDERS: PCP Family Medicine; Visit Provider Family Medicine
DX: R92.8 Other abnormal and inconclusive findings on diagnostic imaging of breast (principal)
CPT/HCPCS: 76642

== ENCOUNTER 2024-02-03 09:32 | Outpatient (CLI) | payer MEDICARE, OTHER, SELFPAY ==
--- NOTE | ~2024-02-03 | XR_ITS ---
XR facial bones min 3V Ordering provider: Manny Paul History: . fall 1 week ago pain and bruising left cheek . Comparison: None. FINDINGS: BONES: No acute fracture as visualized. PARANASAL SINUSES: Well aerated. SOFT TISSUES: Normal. IMPRESSION: No visualized acute facial fracture. Reviewed, dictated and finalized at location A.
== END 2024-02-03 09:33 ==
PROVIDERS: PCP Family Medicine
DX: S00.83XA Contusion of other part of head, initial encounter (principal)
CPT/HCPCS: 70150